=== PATIENT | male | born 1970 | race Hispanic/Latino ===

== ENCOUNTER 2019-02-10 09:16 | Emergency (ER) | payer BC, OTHER ==
[2019-02-10 10:13] LABS: Basophils % 0.7 % (0-1.3); Hematocrit 42.2 % (39.6-49.0); Lymphocytes % 33.1 % (15.3-44.8); MPV 8.8 fL (7.6-11.3)
[2019-02-10] MEDS ORDERED: ONDANSETRON 4 MG/2 ML VIAL ONE (10:20)
[2019-02-10] MEDS ORDERED: MEPERIDINE HCL 25 MG/0.5 ML ONE (10:20)
[2019-02-10 10:25] LABS: ALT/SGPT 30 U/L (12-78); AST/SGOT 10 U/L (15-37); Albumin 3.8 g/dL (3.4-5.0); Alkaline Phosphatase 48 U/L (45-117); BUN Blood Urea Nitrogen 17 mg/dL (7-18); Bicarbonate 26 mmol/L (21-32); Bilirubin Direct 0.1 mg/dL (0-0.2); Bilirubin Total 0.5 mg/dL (0.2-1.0); Glucose Level 97 mg/dL (74-106); Lipase 90 U/L (73-393); Potassium 4.2 mmol/L (3.5-5.1); Protein, Total 7.5 g/dL (6.4-8.2); Sodium Level 141 mmol/L (136-145)
--- NOTE | 2019-02-10 10:51 | RAD REPORT ---
EXAM DESCRIPTION: US - Abdomen Exam Limited - 02/10/2019 10:13 am CLINICAL HISTORY: r/o GB;Abd pain COMPARISON: Abdomen Exam Limited dated 03/05/2016 FINDINGS: The gallbladder demonstrates no gallstones. No pericholecystic fluid or gallbladder wall t hickening. The common bile duct is normal measuring 4 mm. The liver demonstrates no findings of intrahepatic biliary dilatation. IMPRESSION: Unremarkable examination.
--- NOTE | 2019-02-10 10:54 | ER ---
Nurse's Notes [facility] Name: Chilo Sher Age: 48 yrs Sex: Male : 1970 Arrival Date: 02/10/2019 Time: 09:17 Bed 7 Private MD: Diagnosis: Right upper quadrant pain Presentation: 02/10 09:27 Presenting complaint: Patient states: RUQ pain for a few months, got worse yesterday, iw pain described as sharp and radiates to back, intermittent. Transition of care: patient was not received from another setting of care. Onset of symptoms was November 2018. Risk Assessment: Do you want to hurt yourself or someone else? Patient reports no desire to harm self or others. Initial Sepsis Screen: Does the patient meet any 2 criteria? No. Patient's initial sepsis screen is negative. Does the patient have a suspected source of infection? No. Patient's initial sepsis screen is negative. Care prior to arrival: None. :27 Method Of Arrival: Ambulatory iw :27 Acuity: INEZ 3 iw Historical: - Allergies: : No Known Allergies; iw - Home Meds: : None [Active]; iw - PMHx: : None; iw - PSHx: : None; iw - Immunization history:: Adult Immunizations not up to date. - Social history:: Smoking status: Patient/guardian denies using tobacco. - Ebola Screening: : Patient negative for fever greater than or equal to 101.5 degrees Fahrenheit, and additional compatible Ebola Virus Disease symptoms Patient denies exposure to infectious person Patient denies travel to an Ebola-affected area in the 21 days before illness onset No symptoms or risks identified at this time. Screenin:30 Abuse screen: Denies threats or abuse. Nutritional screening: No deficits noted. aa5 Tuberculosis screening: No symptoms or risk factors identified. Fall Risk None identified. Assessment: 09:30 General: Appears comfortable, Behavior is calm, cooperative. Pain: Complains of pain in aa5 right upper quadrant Pain radiates to right mid back Pain currently is 6 out of 10 on a pain scale. Quality of pain is described as sharp, Pain began "months ago" Is intermittent. Neuro: Level of Consciousness is awake, alert, obeys commands, Oriented to person, place, time, situation. Cardiovascular: Heart tones S1 S2 present Rhythm is regular. Respiratory: Airway is patent Respiratory effort is even, unlabored, Respiratory pattern is regular, symmetrical. GI: Abdomen is round non-distended, Bowel sounds present X 4 quads. Abd is soft X 4 quads Abdomen is tender to palpation in right upper quadrant Patient currently denies diarrhea, nausea, vomiting. : No signs and/or symptoms were reported regarding the genitourinary system. EENT: No signs and/or symptoms were reported regarding the EENT system. Derm: Skin is pink, warm \\T\\ dry. Musculoskeletal: Range of motion: intact in all extremities. 10:15 Reassessment: Patient is alert, oriented x 3, equal unlabored respirations, skin aa5 warm/dry/pink. Pt back from US. Pt requesting pain medication at this time, MIKE was notified. . 10:35 Reassessment: Patient is alert, oriented x 3, equal unlabored respirations, skin aa5 warm/dry/pink. Patient states feeling better. 11:22 Reassessment: Patient is alert, oriented x 3, equal unlabored respirations, skin aa5 warm/dry/pink. Vital Signs: 09:29 BP 114 / 80; Pulse 72; Resp 16 S; Temp 97.6(TE); Pulse Ox 99% on R/A; Weight 84.82 kg; iw Height 5 ft. 8 in. (172.72 cm); Pain 8/10; 10:30 BP 118 / 75; Pulse 74; Resp 18 S; Pulse Ox 99% on R/A; Pain 8/10; aa5 11:20 BP 109 / 70; Pulse 60; Resp 16 S; Temp 97.8(TE); Pulse Ox 97% on R/A; aa5 09:29 Body Mass Index 28.43 (84.82 kg, 172.72 cm) iw ED Course: 09:17 Patient arrived in ED. as 09:18 Mor Mcmahan PA is PHCP. jr8 09:18 Augustin Cardoso MD is Attending Physician. jr8 09:20 Buffy Ramos, LAURE is Primary Nurse. aa5 09:28 Triage completed. iw 09:29 Arm band placed on. iw 09:30 Patient has correct armband on for positive identification. Placed in gown. Bed in low aa5 position. Call light in reach. Side rails up X2. 10:03 Initial lab(s) drawn, by me, sent to lab. Inserted saline lock: 22 gauge in right jb1 antecubital area, using aseptic technique. Blood collected. 10:05 US Abdomen Limited In Process Unspecified. EDMS 10:53 Serafin Schuster MD is Referral Physician. jr8 11:22 No provider procedures requiring assistance completed. IV discontinued, intact, aa5 bleeding controlled, No redness/swelling at site. Pressure dressing applied. Administered Medications: 10:19 Drug: Demerol 25 mg Route: IVP; Site: right antecubital; aa5 10:25 Follow up: Response: No adverse reaction aa5 10:19 Drug: Zofran 4 mg Route: IVP; Site: right antecubital; aa5 10:25 Follow up: Response: No adverse reaction aa5 Outcome: 10:53 Discharge ordered by . jr8 11:22 Discharged to home ambulatory, with significant other. aa5 11:22 Condition: stable 11:22 Discharge instructions given to patient, Instructed on discharge instructions, follow up and referral plans. Demonstrated understanding of instructions, follow-up care. 11:30 Patient left the ED. bd Signatures: Dispatcher [employer] EDMS Jackson England jb1 Amanda Ross bd Ann De Paz Irene, RN RN iw Calderon, Audri, RN RN aa5 Mor Mcmahan PA PA jr8 Corrections: (The following items were deleted from the chart) 09:20 Abuse screen: Denies threats or abuse. aa5 aa5 09:20 Nutritional screening: No deficits noted. aa5 aa5 09:20 Tuberculosis screening: No symptoms or risk factors identified. aa5 aa5 09:20 Fall Risk None identified. aa5 aa5 09:20 General: Appears comfortable, Behavior is calm, cooperative, aa5 aa5 09:20 Pain: Complains of pain in right upper quadrant Pain radiates to right mid back aa5 Pain currently is 6 out of 10 on a pain scale. Quality of pain is described as sharp, Pain began "months ago" Is intermittent, aa5 09:20 Neuro: Level of Consciousness is awake, alert, obeys commands, Oriented to aa5 person, place, time, situation, aa5 Cardiovascular: Heart tones S1 S2 present Rhythm is regular aa5 aa:20 Respiratory: Airway is patent Respiratory effort is even, unlabored, Respiratory aa5 pattern is regular, symmetrical, aa5 GI: Abdomen is round non-distended, Bowel sounds present X 4 quads. Abd is soft X aa5 4 quads Abdomen is tender to palpation in right upper quadrant Patient currently denies diarrhea, nausea, vomiting, aa5 : No signs and/or symptoms were reported regarding the genitourinary system. aa5aa5 EENT: No signs and/or symptoms were reported regarding the EENT system. aa5 Derm: Skin is pink, warm \\T\\ dry. aa5 Musculoskeletal: Range of motion: intact in all extremities, aa aa
--- NOTE | 2019-02-10 10:54 | EDPHYS ---
Physician Documentation [facility] Name: Chilo Sher Age: 48 yrs Sex: Male : 1970 Arrival Date: 02/10/2019 Time: 09:17 Bed 7 Private MD: ED Physician Augustin Cardoso HPI: 02/10 10:18 This 48 yrs old Male presents to ER via Ambulatory with complaints of jr8 Epigastric Pain, Back Pain. 10:18 The patient presents with abdominal pain in the epigastric area, in the right upper jr8 quadrant. Onset: The symptoms/episode began/occurred acutely, yesterday. The symptoms radiate to right back. Associated signs and symptoms: none. The symptoms are described as stabbing. Modifying factors: The symptoms are alleviated by nothing, the symptoms are aggravated by food. Severity of pain: At its worst the pain was moderate in the emergency department the pain is unchanged. The patient has not experienced similar symptoms in the past. The patient has not recently seen a physician. Historical: - Allergies: :28 No Known Allergies; iw - Home Meds: : None [Active]; iw - PMHx: : None; iw - PSHx: : None; iw - Immunization history:: Adult Immunizations not up to date. - Social history:: Smoking status: Patient/guardian denies using tobacco. - Ebola Screening: : Patient negative for fever greater than or equal to 101.5 degrees Fahrenheit, and additional compatible Ebola Virus Disease symptoms Patient denies exposure to infectious person Patient denies travel to an Ebola-affected area in the 21 days before illness onset No symptoms or risks identified at this time. ROS: 10:18 Constitutional: Negative for fever, chills, and weight loss. jr8 10:18 Abdomen/GI: Positive for abdominal pain, Negative for nausea, vomiting, and diarrhea, abdominal cramps, abdominal distension, hematemesis, black/tarry stool, rectal pain, rectal bleeding, bowel incontinence, flatulence. 10:18 All other systems are negative. Exam: 10:18 Eyes: Pupils equal round and reactive to light, extra-ocular motions intact. Lids and jr8 lashes normal. Conjunctiva and sclera are non-icteric and not injected. Cornea within normal limits. Periorbital areas with no swelling, redness, or edema. ENT: Nares patent. No nasal discharge, no septal abnormalities noted. Tympanic membranes are normal and external auditory canals are clear. Oropharynx with no redness, swelling, or masses, exudates, or evidence of obstruction, uvula midline. Mucous membranes moist. Neck: Trachea midline, no thyromegaly or masses palpated, and no cervical lymphadenopathy. Supple, full range of motion without nuchal rigidity, or vertebral point tenderness. No Meningismus. Cardiovascular: Regular rate and rhythm with a normal S1 and S2. No gallops, murmurs, or rubs. Normal PMI, no JVD. No pulse deficits. Respiratory: Lungs have equal breath sounds bilaterally, clear to auscultation and percussion. No rales, rhonchi or wheezes noted. No increased work of breathing, no retractions or nasal flaring. Back: No spinal tenderness. No costovertebral tenderness. Full range of motion. Skin: Warm, dry with normal turgor. Normal color with no rashes, no lesions, and no evidence of cellulitis. MS/ Extremity: Pulses equal, no cyanosis. Neurovascular intact. Full, normal range of motion. Neuro: Awake and alert, GCS 15, oriented to person, place, time, and situation. Cranial nerves II-XII grossly intact. Motor strength 5/5 in all extremities. Sensory grossly intact. Cerebellar exam normal. Normal gait. 10:18 Abdomen/GI: Inspection: abdomen appears normal, Bowel sounds: active, all quadrants, Palpation: soft, in all quadrants, moderate abdominal tenderness, in the right upper quadrant, mass, is not appreciated, rebound tenderness, is not appreciated, voluntary guarding, is not appreciated, involuntary guarding, is not appreciated, no appreciated organomegaly, Indicators: McBurney's point is not tender, Chavez's sign is negative, Rovsing's sign is negative, Liver: tenderness, is not appreciated. Vital Signs: 09:29 BP 114 / 80; Pulse 72; Resp 16 S; Temp 97.6(TE); Pulse Ox 99% on R/A; Weight 84.82 kg; iw Height 5 ft. 8 in. (172.72 cm); Pain 8/10; 10:30 BP 118 / 75; Pulse 74; Resp 18 S; Pulse Ox 99% on R/A; Pain 8/10; aa5 11:20 BP 109 / 70; Pulse 60; Resp 16 S; Temp 97.8(TE); Pulse Ox 97% on R/A; aa5 09:29 Body Mass Index 28.43 (84.82 kg, 172.72 cm) iw MDM: 09:41 Patient medically screened. 10:51 Differential diagnosis: bowel obstruction, cholecystitis, Cholelithiasis, jr8 diverticulitis, gastritis, gastroesophageal reflux disease, non-specific abd pain, pancreatitis, Peptic Ulcer Disease, Perf. Duodenal Ulcer, Perf. Gastric Ulcer, Ureterolithiasis. Data reviewed: vital signs, nurses notes, lab test result(s), radiologic studies, ultrasound. Data interpreted: Pulse oximetry: on room air is 99 %. Interpretation: normal. Counseling: I had a detailed discussion with the patient and/or guardian regarding: the historical points, exam findings, and any diagnostic results supporting the discharge/admit diagnosis, lab results, radiology results, the need for outpatient follow up, a uniform maker, to return to the emergency department if symptoms worsen or persist or if there are any questions or concerns that arise at home. Response to treatment: the patient's symptoms have markedly improved after treatment. 02/10 09:53 Order name: Basic Metabolic Panel; Complete Time: 10:35 02/10 09:53 Order name: CBC with Diff; Complete Time: 10:17 02/10 09:53 Order name: Creatinine for Radiology; Complete Time: 10:35 02/10 09:53 Order name: Hepatic Function; Complete Time: 10:35 02/10 09:53 Order name: Lipase; Complete Time: 10:35 02/10 09:53 Order name: US Abdomen Limited; Complete Time: 10:53 02/10 09:53 Order name: IV Saline Lock; Complete Time: 10:03 02/10 09:53 Order name: Labs collected and sent; Complete Time: 10: Administered Medications: 10:19 Drug: Demerol 25 mg Route: IVP; Site: right antecubital; aa5 10:25 Follow up: Response: No adverse reaction aa5 10:19 Drug: Zofran 4 mg Route: IVP; Site: right antecubital; aa5 10:25 Follow up: Response: No adverse reaction aa5 Disposition: 17:50 Co-signature as Attending Physician, Augustin Cardoso MD Did not see or evaluate patient. ps1 Chart signed for administrative purposes. Not an endorsement of care. . Disposition: 02/10/19 10:53 Discharged to Home. Impression: Right upper quadrant pain. - Condition is Stable. - Discharge Instructions: Abdominal Pain, Adult, Biliary Colic, Adult, Gallbladder Nuclear Scan. - Work release form, Medication Reconciliation Form, Thank You Letter, Antibiotic Education, Prescription Opioid Use form. - Follow up: Serafin Schuster MD; When: 2 - 3 days; Reason: Recheck today's complaints, Continuance of care, Re-evaluation by your physician. - Problem is new. - Symptoms have improved. Signatures: Dispatcher [employer] Amanda Camacho Irene, LAURE RN iw Buffy Ramos RN RN aa5 Mor Mcmahan, MIKE PA jr8 Augustin Cardoso MD MD ps1 Corrections: (The following items were deleted from the chart) 11:30 10:53 02/10/2019 10:53 Discharged to Home. Impression: Right upper quadrant pain. bd Condition is Stable. Forms are Medication Reconciliation Form, Thank You Letter, Antibiotic Education, Prescription Opioid Use. Follow up: Serafin Schuster; When: 2 - 3 days; Reason: Recheck today's complaints, Continuance of care, Re-evaluation by your physician. Problem is new. Symptoms have improved. jr8
[2019-02-10 11:42] VITALS: BP 114/80; TEMP 97.6; O2SAT 99
== END 2019-02-10 11:30 | disposition home or self-care (01) ==
LOC: ER 09:16
DX: R10.11 Right upper quadrant pain (principal)
CPT/HCPCS: 85025; 80048; 36415; 80076; 83690; 76705; 96375; 96374; 99284; J2175; J2405

== ENCOUNTER 2019-05-11 17:07 | Emergency (ER) | payer BC ==
[2019-05-11] MEDS ORDERED: KETOROLAC 30 MG/ML INJ ONE (18:07)
--- NOTE | 2019-05-11 18:22 | RAD REPORT ---
EXAM DESCRIPTION: RAD - Shoulder Right 2 View - 05/11/2019 6:16 pm CLINICAL HISTORY: PAIN COMPARISON: No comparisons FINDINGS: Moderate AC joint and glenohumeral joint arthritic changes present. Humeral head is mildly high-riding with subacromial outlet narrowing suggesting underlying rotator cuff pathology. No fract ure or dislocation seen.
--- NOTE | 2019-05-11 19:01 | ER ---
Nurse's Notes [facility] Name: Chilo Sher Age: 48 yrs Sex: Male : 1970 Arrival Date: 05/11/2019 Time: 17:09 Bed 15 Private MD: Diagnosis: Pain in right shoulder Presentation: 05/11 17:34 Presenting complaint: Right shoulder pain 10/10 x 2 days. Denies injury. Transition of care: patient was not received from another setting of care. Onset of symptoms was May 10, 2019. Risk Assessment: Do you want to hurt yourself or someone else? Patient reports no desire to harm self or others. Care prior to arrival: None. 17:34 Method Of Arrival: Ambulatory 17:34 Acuity: INEZ 4 Triage Assessment: 17:37 General: Appears in no apparent distress. comfortable, Behavior is cooperative, bp appropriate for age, anxious. Pain: Complains of pain in anterior aspect of right shoulder. EENT: No deficits noted. Neuro: No deficits noted. Cardiovascular: No deficits noted. Respiratory: No deficits noted. GI: No signs and/or symptoms were reported involving the gastrointestinal system. : No signs and/or symptoms were reported regarding the genitourinary system. Derm: No deficits noted. Musculoskeletal: Circulation, motion, and sensation intact. Range of motion: intact in all extremities. Historical: - Allergies: 17:34 No Known Allergies; hb - Home Meds: 17:34 None [Active]; hb - PMHx: 17:34 None; hb - PSHx: 17:34 None; hb - Immunization history:: Adult Immunizations up to date. - Coronavirus screen:: The patient has NOT traveled to [place] in the past 14 days. The patient has NOT had contact with known/suspected case of Coronavirus? Proceed with normal triage procedures. - Social history:: Patient/guardian denies using alcohol, street drugs, The patient lives with family, with spouse, Smoking status: Patient reports the use of cigarette tobacco products, denies chronic smoking, but will smoke occasionally. - Family history:: not pertinent. - Ebola Screening: : No symptoms or risks identified at this time. Screenin:39 Abuse screen: Denies threats or abuse. Denies injuries from another. Nutritional bp screening: No deficits noted. Tuberculosis screening: No symptoms or risk factors identified. Fall Risk None identified. Assessment: 17:39 General: SEE TRIAGE NOTE. bp 19:08 Reassessment: PT D/C HOME AMBULATORY, DX WITH R SHOULDER PAIN. bp Vital Signs: 17:34 BP 128 / 85; Pulse 88; Resp 16; Temp 97.9; Pulse Ox 100% on R/A; Weight 86.18 kg; hb Height 5 ft. 8 in. (172.72 cm); Pain 8/10; 19:08 BP 131 / 79; Pulse 79; Resp 16; Temp 98; Pulse Ox 99% ; bp 17:34 Body Mass Index 28.89 (86.18 kg, 172.72 cm) hb ED Course: 17:09 Patient arrived in ED. rg4 17:34 Triage completed. hb 17:34 Arm band placed on. hb 17:37 Alfonso Londono, RN is Primary Nurse. bp 17:39 Patient has correct armband on for positive identification. Bed in low position. Call bp light in reach. Side rails up X2. 17:40 Marco Swartz MD is Attending Physician. ma2 19:08 No provider procedures requiring assistance completed. Patient did not have IV access bp during this emergency room visit. Sling applied to right arm. Administered Medications: 18:00 Drug: TORadol 60 mg Route: IM; Site: right gluteus; bp 19:08 Follow up: Response: Pain is decreased bp Outcome: 18:57 Discharge ordered by . ma2 19:08 Discharged to home ambulatory, with family. bp 19:08 Condition: stable 19:08 Discharge instructions given to patient, Instructed on discharge instructions, follow up and referral plans. medication usage, Demonstrated understanding of instructions, follow-up care, medications, Prescriptions given X 2. 19:10 Patient left the ED. bp Signatures: Parisa Fried RN RN Alis Lutz rg4 Alfonso Londono, LAURE KELSEY bp Marco Swartz MD MD health system
--- NOTE | 2019-05-11 19:02 | EDPHYS ---
Physician Documentation [facility] Name: Chilo Sher Age: 48 yrs Sex: Male : 1970 Arrival Date: 05/11/2019 Time: 17:09 Bed 15 Private MD: ED Physician Marco Swartz HPI: 05/11 18:45 This 48 yrs old Male presents to ER via Ambulatory with complaints of Arm Pain.ma2 18:45 The patient or guardian complains of pain. The complaints affect the anterior aspect of ma2 right shoulder. Onset: The symptoms/episode began/occurred gradually, 2 day(s) ago. Associated signs and symptoms: Pertinent negatives: fever, numbness, tingling, vomiting. Severity of symptoms: At their worst the symptoms were mild, in the emergency department the symptoms are unchanged. The patient has not experienced similar symptoms in the past. Historical: - Allergies: 17:34 No Known Allergies; hb - Home Meds: 17:34 None [Active]; hb - PMHx: 17:34 None; hb - PSHx: 17:34 None; hb - Immunization history:: Adult Immunizations up to date. - Coronavirus screen:: The patient has NOT traveled to [place] in the past 14 days. The patient has NOT had contact with known/suspected case of Coronavirus? Proceed with normal triage procedures. - Social history:: Patient/guardian denies using alcohol, street drugs, The patient lives with family, with spouse, Smoking status: Patient reports the use of cigarette tobacco products, denies chronic smoking, but will smoke occasionally. - Family history:: not pertinent. - Ebola Screening: : No symptoms or risks identified at this time. ROS: 18:45 Constitutional: Negative for fever, chills, and weight loss. ma2 18:45 All other systems are negative. Exam: 18:45 Constitutional: This is a well developed, well nourished patient who is awake, alert, ma2 and in no acute distress. Neck: Trachea midline, no thyromegaly or masses palpated, and no cervical lymphadenopathy. Supple, full range of motion without nuchal rigidity, or vertebral point tenderness. No Meningismus. Chest/axilla: Normal chest wall appearance and motion. Nontender with no deformity. No lesions are appreciated. Cardiovascular: Regular rate and rhythm with a normal S1 and S2. No gallops, murmurs, or rubs. Normal PMI, no JVD. No pulse deficits. Respiratory: Lungs have equal breath sounds bilaterally, clear to auscultation and percussion. No rales, rhonchi or wheezes noted. No increased work of breathing, no retractions or nasal flaring. Abdomen/GI: Soft, non-tender, with normal bowel sounds. No distension or tympany. No guarding or rebound. No evidence of tenderness throughout. Skin: Warm, dry with normal turgor. Normal color with no rashes, no lesions, and no evidence of cellulitis. MS/ Extremity: right rotator cuff ttp and biceps ttp, otherwise Pulses equal, no cyanosis. Neurovascular intact. Full, normal range of motion. 18:45 Neuro: Awake and alert, GCS 15, oriented to person, place, time, and situation. ma2 Cranial nerves II-XII grossly intact. Motor strength 5/5 in all extremities. Sensory grossly intact. Cerebellar exam normal. Normal gait. Vital Signs: 17:34 BP 128 / 85; Pulse 88; Resp 16; Temp 97.9; Pulse Ox 100% on R/A; Weight 86.18 kg; hb Height 5 ft. 8 in. (172.72 cm); Pain 8/10; 19:08 BP 131 / 79; Pulse 79; Resp 16; Temp 98; Pulse Ox 99% ; bp 17:34 Body Mass Index 28.89 (86.18 kg, 172.72 cm) hb MDM: 17:40 Patient medically screened. ma2 18:45 Differential diagnosis: dislocation, closed fracture, contusion, abrasion. Data ma2 reviewed: vital signs, nurses notes. Counseling: I had a detailed discussion with the patient and/or guardian regarding: the historical points, exam findings, and any diagnostic results supporting the discharge/admit diagnosis, the presence of at least one elevated blood pressure reading (>120/80) during this emergency department visit, the need for outpatient follow up. Response to treatment: the patient's symptoms have markedly improved after treatment. 05/11 17:52 Order name: Shoulder Right (2 View) XRAY ma2 05/11 17:52 Order name: Arm-Sling; Complete Time: 19:08 ma2 Administered Medications: 18:00 Drug: TORadol 60 mg Route: IM; Site: right gluteus; bp 19:08 Follow up: Response: Pain is decreased bp Disposition: 05/11/19 18:57 Discharged to Home. Impression: Pain in right shoulder. - Condition is Stable. - Discharge Instructions: Musculoskeletal Pain, Cryotherapy. - Prescriptions for Tylenol- Codeine #3 300-30 mg Oral Tablet - take 2 tablet by ORAL route every 6 hours As needed; 30 tablet. Cyclobenzaprine 10 mg Oral Tablet - take 1 tablet by ORAL route every 8 hours As needed; 30 tablet. - School release form, Work release form, Medication Reconciliation Form, Thank You Letter, Antibiotic Education, Prescription Opioid Use form. - Follow up: Private Physician; When: Tomorrow; Reason: Continuance of care. Signatures: Dispatcher [employer] EDMS Parisa Fried RN RN Alfonso Pryor RN RN Marco Chacon MD MD ma2 Corrections: (The following items were deleted from the chart) 19:10 18:57 05/11/2019 18:57 Discharged to Home. Impression: Pain in right shoulder. bp Condition is Stable. Discharge Instructions: Musculoskeletal Pain, Cryotherapy. Prescriptions for Tylenol-Codeine #3 300-30 mg Oral Tablet - take 2 tablet by ORAL route every 6 hours As needed; 30 tablet, Cyclobenzaprine 10 mg Oral Tablet - take 1 tablet by ORAL route every 8 hours As needed; 30 tablet. and Forms are Medication Reconciliation Form, Thank You Letter, Antibiotic Education, Prescription Opioid Use. Follow up: Private Physician; When: Tomorrow; Reason: Continuance of care. ma2
== END 2019-05-11 19:10 | disposition home or self-care (01) ==
LOC: ER 17:07
DX: M25.511 Pain in right shoulder (principal); Z72.0 Tobacco use
CPT/HCPCS: 96372; 99283

== ENCOUNTER 2020-11-09 05:08 | Emergency (ER) | payer BC, SELFPAY ==
[2020-11-09 06:36] LABS: Absolute Lymphocytes (CBC) 0.8 K/uL (0.7-4.9); Basophils % 0.6 % (0-1.3); Hematocrit 43.7 % (39.6-49.0); MPV 8.5 fL (7.6-11.3); RBC Red Blood Cell Count 4.84 M/uL (4.33-5.43)
[2020-11-09] MEDS ORDERED: NA CHLORIDE 0.9% 1,000 ML ONE (06:50)
[2020-11-09] MEDS ORDERED: KETOROLAC 30 MG/ML INJ ONE (06:50)
[2020-11-09] MEDS ORDERED: DICYCLOMINE HCL 10 MG CAP ONE (06:50)
[2020-11-09 06:53] LABS: Albumin 4.2 g/dL (3.4-5.0); Bilirubin Direct 0.1 mg/dL (0-0.2); Bilirubin Total 0.4 mg/dL (0.2-1.0); Potassium 3.7 mmol/L (3.5-5.1); Protein, Total 8.9 g/dL (6.4-8.2)
--- NOTE | 2020-11-09 07:31 | RAD REPORT ---
EXAM DESCRIPTION: CT - Abdomen Pelvis W Contrast - 11/09/2020 6:51 am CLINICAL HISTORY: ABD PAIN COMPARISON: No comparisons TECHNIQUE: Biphasic, helical CT imaging of the abdomen and pelvis was performed following 100 ml non -ionic IV contrast. No oral contrast administered. All CT scans are performed using dose optimization technique as appropriate and may include automated exposure control or mA/KV adjustment according to patient size. FINDINGS: No suspicious findings in the lung bases. The liver, spleen, and pancreas show no suspicious findings. Gallbladder and biliary tree are also wi thout suspicious finding. Symmetric renal function is seen with no hydronephrosis or suspicious renal mass. No pyelonephritis o r acute parenchymal process. Urinary bladder is mostly contracted limiting assessment. No prostate or seminal vesicle abnormality. No adrenal abnormalities. No dilated bowel loops or bowel wall thickening. Appendix is normal. No active GI process seen. Sigmo id colon is tortuous and redundant. No free air, free fluid or inflammatory stranding. No hernia, ma ss or bulky lymphadenopathy. No suspicious bony findings. IMPRESSION: Contrast enhanced CT abdomen and pelvis showing no acute or emergent finding.
--- NOTE | 2020-11-09 07:41 | EDPHYS ---
Physician Documentation [facility] Name: Chilo Sher Age: 50 yrs Sex: Male : 1970 Arrival Date: 11/09/2020 Time: 05:11 Bed 9 Private MD: ED Physician Abhijeet Ashley HPI: 11/09 06:39 This 50 yrs old Male presents to ER via Ambulatory with complaints of kb Diarrhea, Abdominal Cramping, Black/Tarry Stools, Bloody Stools. 06:39 The patient presents to the emergency department with diarrhea, abdominal pain, kb described as crampy. Onset: The symptoms/episode began/occurred 2 day(s) ago. Possible causes: unknown. The symptoms are aggravated by nothing. The symptoms are alleviated by nothing. Associated signs and symptoms: Pertinent positives: abdominal pain, diarrhea, Pertinent negatives: fever, nausea, vomiting. Severity of symptoms: At their worst the symptoms were moderate in the emergency department the symptoms have improved. The patient has not experienced similar symptoms in the past. The patient has not recently seen a physician. Pt reports diarrhea for 2 days with abd cramping. States he noticed a couple of drops of blood on the toilet paper when he wiped yesterday. Started taking pepto bismol yesterday, now stool is more formed and black in color. . Historical: - Allergies: 05:26 No Known Allergies; bb - Home Meds: 05:26 None [Active]; bb - PMHx: 05:26 None; bb - PSHx: 05:26 None; bb - Immunization history:: Adult Immunizations up to date, Client reports having NOT received the Covid vaccine. - Social history:: Smoking status: Patient reports the use of cigarette tobacco products, denies chronic smoking, but will smoke occasionally, Patient uses alcohol, occasionally. ROS: 06:38 Constitutional: Negative for fever, chills, and weight loss. kb 06:38 Abdomen/GI: Positive for abdominal pain, diarrhea, black/tarry stool, Negative for nausea and vomiting. 06:38 All other systems are negative. Exam: 06:38 Constitutional: This is a well developed, well nourished patient who is awake, alert, kb and in no acute distress. Head/Face: Normocephalic, atraumatic. ENT: Moist Mucous membranes Respiratory: Respirations even and unlabored. No increased work of breathing, no retractions or nasal flaring. Skin: Warm, dry with normal turgor. Normal color. MS/ Extremity: Pulses equal, no cyanosis. Neurovascular intact. Full, normal range of motion. Neuro: Awake and alert, GCS 15, oriented to person, place, time, and situation. Moves all extremities. Normal gait. Psych: Awake, alert, with orientation to person, place and time. Behavior, mood, and affect are within normal limits. 06:38 Abdomen/GI: Inspection: abdomen appears normal, Bowel sounds: normal, in all quadrants, Palpation: soft, in all quadrants, mild abdominal tenderness, in the right upper quadrant and right lower quadrant. Vital Signs: 05:24 BP 116 / 80; Pulse 95; Resp 18 S; Temp 99.1(O); Pulse Ox 98% on R/A; Weight 86.18 kg bb (R); Height 5 ft. 8 in. (172.72 cm) (R); Pain 7/10; 05:24 Body Mass Index 28.89 (86.18 kg, 172.72 cm) bb MDM: 06:01 Patient medically screened. kb 06:37 Data reviewed: vital signs, nurses notes. Data interpreted: Pulse oximetry: on room air kb is 98 %. Interpretation: normal. 07:41 Counseling: I had a detailed discussion with the patient and/or guardian regarding: the kb historical points, exam findings, and any diagnostic results supporting the discharge/admit diagnosis, lab results, radiology results, the need for outpatient follow up, a family practitioner, to return to the emergency department if symptoms worsen or persist or if there are any questions or concerns that arise at home. 11/09 05:28 Order name: Basic Metabolic Panel; Complete Time: 06:58 11/09 05:28 Order name: CBC with Diff; Complete Time: 06:42 11/09 05:28 Order name: Hepatic Function; Complete Time: 06:58 11/09 05:28 Order name: Lipase; Complete Time: 06:58 11/09 05:28 Order name: Type And Screen; Complete Time: 07:31 11/09 05:28 Order name: IV Saline Lock; Complete Time: 06:23 11/09 05:28 Order name: Labs collected and sent; Complete Time: 06:23 bb 11/09 06:02 Order name: CT Abd/Pelvis - IV Contrast Only; Complete Time: 07:32 kb 11/09 07:02 Order name: CREATININE WHOLE BLOOD; Complete Time: 07:31 EDMS 11/09 07:36 Order name: SARS-COV-2 RT PCR; Complete Time: 07:37 EDMS Administered Medications: 06:31 Drug: NS 0.9% 1000 ml Route: IV; Rate: 1000 ml; Site: left antecubital; bb 07:35 Follow up: IV Status: Completed infusion; IV Intake: 1000ml bb 06:31 Drug: Bentyl (dicyclomine) 20 mg Route: PO; bb 07:35 Follow up: Response: No adverse reaction bb 06:32 Drug: Ketorolac 15 mg Route: IVP; Site: left antecubital; bb 07:35 Follow up: Response: No adverse reaction bb Disposition Summary: 11/09/20 07:41 Discharge Ordered Location: Home kb Condition: Stable kb Diagnosis - Coronavirus infection, unspecified kb Followup: kb - With: Emergency Department - When: As needed - Reason: Worsening of condition Followup: kb - With: Private Physician - When: 2 - 3 days - Reason: Recheck today's complaints, Continuance of care, Re-evaluation by your physician Discharge Instructions: - Discharge Summary Sheet kb - Diarrhea, Adult, [id number] kb - Viral Respiratory Infection, [id number]-[id number] kb - COVID-19 kb Forms: - Medication Reconciliation Form kb - Thank You Letter kb - Antibiotic Education kb - Prescription Opioid Use kb Prescriptions: - Zofran 4 mg Oral Tablet - take 1 tablet by ORAL route every 6 hours As needed; 20 tablet; Refills: 0, kb Product Selection Permitted - dicyclomine 20 mg Oral Tablet - take 1 tablet by ORAL route every 6 hours As needed; 20 tablet; Refills: 0, kb Product Selection Permitted Signatures: Dispatcher [employer] EDPriscilla Keller FNP-C FNP-Ckb Ballard, Brenda, RN RN bb Corrections: (The following items were deleted from the chart) 06:32 05:31 CORONAVIRUS+.BRZ ordered. EDLA EDMS 06:38 06:38 Abdomen/GI: Positive for abdominal pain, diarrhea, Negative for nausea and kb vomiting, kb 06:39 06:38 Abdomen/GI: Inspection: abdomen appears normal, Bowel sounds: normal, in all kb quadrants, Palpation: soft, in all quadrants, mild abdominal tenderness, in the anterior aspect of right lateral abdomen, kb
--- NOTE | 2020-11-09 07:41 | ER ---
Nurse's Notes [facility] Name: Chilo Sher Age: 50 yrs Sex: Male : 1970 Arrival Date: 11/09/2020 Time: 05:11 Bed 9 Private MD: Diagnosis: Coronavirus infection, unspecified Presentation: 11/09 05:24 Chief complaint: Patient states: he has been having diarrhea for two days with lower bb abdominal cramping and the 2nd day he started passing blood, he has been taking pepto for the diarrhea. Coronavirus screen: diarrhea, Client presents with at least one sign or symptom that may indicate coronavirus-19. Standard/surgical mask placed on the client. Ebola Screen: No symptoms or risks identified at this time. Initial Sepsis Screen: Does the patient meet any 2 criteria? No. Patient's initial sepsis screen is negative. Does the patient have a suspected source of infection? No. Patient's initial sepsis screen is negative. Risk Assessment: Do you want to hurt yourself or someone else? Patient reports no desire to harm self or others. Onset of symptoms was November 07, 2020. 05:24 Method Of Arrival: Ambulatory 05:24 Acuity: INEZ 3 bb Triage Assessment: 05:26 General: Appears in no apparent distress. uncomfortable, Behavior is cooperative, bb anxious. Pain: Complains of pain in abdomen Pain currently is 7 out of 10 on a pain scale. Neuro: Level of Consciousness is awake, alert, obeys commands, Oriented to person, place, time, situation. Cardiovascular: Capillary refill < 3 seconds Patient's skin is warm and dry. Respiratory: Respiratory effort is even, unlabored. GI: Abdomen is non-distended, Reports lower abdominal pain, diarrhea, rectal bleeding. Derm: Skin is dry, Skin is normal, Skin temperature is warm. Musculoskeletal: Circulation, motion, and sensation intact. Historical: - Allergies: 05: No Known Allergies; bb - Home Meds: : None [Active]; bb - PMHx: 05:26 None; bb - PSHx: 05:26 None; bb - Immunization history:: Adult Immunizations up to date, Client reports having NOT received the Covid vaccine. - Social history:: Smoking status: Patient reports the use of cigarette tobacco products, denies chronic smoking, but will smoke occasionally, Patient uses alcohol, occasionally. Screenin:45 Abuse screen: Denies threats or abuse. Nutritional screening: No deficits noted. bb Tuberculosis screening: No symptoms or risk factors identified. Fall Risk None identified. Assessment: 05:45 Reassessment: No changes from previously documented assessment. Patient is alert, bb oriented x 3, equal unlabored respirations, skin warm/dry/pink. see triage assessment. 06:32 Reassessment: Patient is alert, oriented x 3, equal unlabored respirations, skin bb warm/dry/pink. pt to CT scan via wheelchair accompanied by biological lab technician. Vital Signs: 05:24 BP 116 / 80; Pulse 95; Resp 18 S; Temp 99.1(O); Pulse Ox 98% on R/A; Weight 86.18 kg bb (R); Height 5 ft. 8 in. (172.72 cm) (R); Pain 7/10; 05:24 Body Mass Index 28.89 (86.18 kg, 172.72 cm) bb ED Course: 05:11 Patient arrived in ED. bp1 05:26 Triage completed. bb 05:26 Arm band placed on Patient placed in waiting room, Patient notified of wait time. Labs bb ordered per protocol. Drawn by ED staff. 05:45 Patient has correct armband on for positive identification. bb 06:01 Priscilla Ordo[facility]-C [facility] kb 06:01 Abhijeet Ashley MD is Attending Physician. kb 06:15 Initial lab(s) drawn, by me, sent to lab. COVID swab sent to lab. T\T\S collected, blood bb band applied to patient. Inserted saline lock: 18 gauge in left antecubital area, using aseptic technique. Blood collected. 06:50 CT Abd/Pelvis - IV Contrast Only In Process Unspecified. EDMS 08:56 No provider procedures requiring assistance completed. IV discontinued, intact, ss bleeding controlled, No redness/swelling at site. Pressure dressing applied. Administered Medications: 06:31 Drug: NS 0.9% 1000 ml Route: IV; Rate: 1000 ml; Site: left antecubital; bb 07:35 Follow up: IV Status: Completed infusion; IV Intake: 1000ml bb 06:31 Drug: Bentyl (dicyclomine) 20 mg Route: PO; bb 07:35 Follow up: Response: No adverse reaction bb 06:32 Drug: Ketorolac 15 mg Route: IVP; Site: left antecubital; bb 07:35 Follow up: Response: No adverse reaction bb Intake: 07:35 IV: 1000ml; Total: 1000ml. bb Outcome: 07:41 Discharge ordered by . kb 08:56 Discharged to home ambulatory. ss 08:56 Condition: improved 08:56 Discharge instructions given to patient, Instructed on discharge instructions, follow up and referral plans. medication usage, Demonstrated understanding of instructions, follow-up care, medications, Prescriptions given X 2. 08:56 Patient left the ED. ss Signatures: Dispatcher [employer] EDMS Priscilla Ordoñez, LAURYN LEON-Louise Ventura RN RN bb Penelope Spain RN RN ss Annita Peters
[2020-11-09 09:04] VITALS: BP 116/80; TEMP 99.1; O2SAT 98
== END 2020-11-09 08:56 | disposition home or self-care (01) ==
LOC: ER 05:08
DX: U07.1 COVID-19 (principal); F17.210 Nicotine dependence, cigarettes, uncomplicated
CPT/HCPCS: 36415; 74177; 80048; 80076; 82565; 83690; 85025; 86850; 86900; 86901; J7030; Q9967; U0003

== ENCOUNTER 2021-10-23 07:07 | Emergency (ER) | payer SELFPAY ==
--- OUTSIDE RECORDS SUMMARY | 2021-10-23 07:11 | XMS REPORT | Continuity of Care Document ---
:1970 Author Organization [facility] t Address [address] [place] [address] Care Team Providers Name Role Phone Navya Christina Primary Care Physician [phone] Problems This patient has no known problems. Allergies, Adverse Reactions, Alerts This patient has no known allergies or adverse reactions. Medications Ordered Filled Start Stop Current Ordering Indication Dosage Frequency Signature Comments Components Source Medication Medication Date Date Medication? Clinician (SIG) Name Name TAKE ONE No 4 (1) 8-06 TABLET(S) 00:00: BY MOUTH 00 EVERY SIX HOURS NEEDED. TAKE ONE No 20 (1) 8-06 TABLET(S) 00:00: BY MOUTH 00 EVERY SIX HOURS NEEDED. ibuprofen No 1mg 800 mg 6-26 tablet 00:00: 00 omeprazole 2018- No 1mg 20 mg 1-18 capsule,del 00:00: ayed 00 release loratadine 2018-03 No 1mg 10 mg 1-18 tablet 00:00: 00 naproxen 2016-03 No 1mg 500 mg 2-04 tablet 00:00: 00 prednisone 2016- No mg 20 mg 2-04 tablet 00:00: 00 cyclobenzap 2016- No 1mg rine 10 mg 2-04 tablet 00:00: 00 gabapentin 2016- No 1mg 300 mg 2-04 capsule 00:00: 00 gentamicin 2016-0 No 3% 0.3 % eye 7-13 drops 00:00: 00 ranitidine 0 No 1mg 150 mg 7-13 tablet 00:00: 00 Vital Signs Vital Name Observation Time Observation Value Comments Source BP Systolic 2021-10-21 09:39:00 125 mm[Hg] BP Diastolic 2021-10-21 09:39:00 80 mm[Hg] Weight Measured 2021-10-21 09:39:00 188.20 pounds Height Measured 2021-10-21 09:39:00 70.00 inches Body Temperature 2021-10-21 09:39:00 97.90 degrees Heart Rate 2021-10-21 09:39:00 57.00 /min Respiratory Rate 2021-10-21 09:39:00 BP Systolic 2019-09-11 11:17:00 111 mm[Hg] BP Diastolic 2019-09-11 11:17:00 72 mm[Hg] Weight Measured 2019-09-11 11:17:00 186.00 pounds Height Measured 2019-09-11 11:17:00 70.00 inches Body Temperature 2019-09-11 11:17:00 98.60 degrees Heart Rate 2019-09-11 11:17:00 74.00 /min Respiratory Rate 2019-09-11 11:17:00 16.00 /min BP Systolic 2019-02-02 12:41:00 112 mm[Hg] BP Diastolic 2019-02-02 12:41:00 73 mm[Hg] Weight Measured 2019-02-02 12:41:00 184.80 pounds Height Measured 2019-02-02 12:41:00 70.00 inches Body Temperature 2019-02-02 12:41:00 98.20 degrees Heart Rate 2019-02-02 12:41:00 82.00 /min Respiratory Rate 2019-02-02 12:41:00 BP Systolic 2017-02-18 08:48:00 114 mm[Hg] BP Diastolic 2017-02-18 08:48:00 76 mm[Hg] Weight Measured 2017-02-18 08:48:00 188.00 pounds Height Measured 2017-02-18 08:48:00 70.00 inches Body Temperature 2017-02-18 08:48:00 98.30 degrees Heart Rate 2017-02-18 08:48:00 55.00 /min Respiratory Rate 2017-02-18 08:48:00 18.00 /min BP Systolic 2016-09-27 17:06:00 118 mm[Hg] BP Diastolic 2016-09-27 17:06:00 76 mm[Hg] Weight Measured 2016-09-27 17:06:00 196.00 pounds Height Measured 2016-09-27 17:06:00 70.00 inches Body Temperature 2016-09-27 17:06:00 98.80 degrees Heart Rate 2016-09-27 17:06:00 80.00 /min Respiratory Rate 2016-09-27 17:06:00 16.00 /min BP Systolic 2016-03-08 16:50:00 107 mm[Hg] BP Diastolic 2016-03-08 16:50:00 69 mm[Hg] Weight Measured 2016-03-08 16:50:00 192.80 pounds Height Measured 2016-03-08 16:50:00 70.00 inches Body Temperature 2016-03-08 16:50:00 96.70 degrees Heart Rate 2016-03-08 16:50:00 58.00 /min Respiratory Rate 2016-03-08 16:50:00 18.00 /min Procedures This patient has no known procedures. Plan of Care Planned Activity Planned Date Details Comments Source Goal Plan of Care Note [code = 61861-9] Goal Plan of Care Note [code = 22552-4] Goal Plan of Care Note [code = 91837-8] Goal Plan of Care Note [code = 20884-6] Goal Plan of Care Note [code = 57476-7] Goal Plan of Care Note [code = 78123-6] Goal Plan of Care Note [code = 61602-2] Goal Plan of Care Note [code = 11084-0] Goal Plan of Care Note [code = 25528-9] Goal Plan of Care Note [code = 03813-0] Goal Plan of Care Note [code = 66085-3] Goal Plan of Care Note [code = 01433-4] Goal Plan of Care Note [code = 77489-5] Goal Plan of Care Note [code = 32061-8] Goal Plan of Care Note [code = 82804-6] Goal Plan of Care Note [code = 13274-1] Goal Plan of Care Note [code = 70051-3] Goal Plan of Care Note [code = 08558-1] Goal Plan of Care Note [code = 95665-5] Goal Plan of Care Note [code = 68711-7] Goal Plan of Care Note [code = 93051-4] Goal Plan of Care Note [code = 59225-9] Encounters Start End Encounter Admission Attending Care Care Encounter Source Date/Time Date/Time Type Type Clinicians Facility Department ID 2021-10-21 2021-10-21 Outpatient [id number] 00:00:00 00:00:00 Visit [id number] Results Test Description Test Time Test Comments Results Result Comments Source COMPREHENSIVE METABOLIC PANEL 2021-10-23 06:54:18 Test Item Value Reference Range Interpretation Comme nts GLUCOSE (test code = 2216) 99 MG/DL 70-99 BUN (test code = 220) 20 MG/DL 6-20 CREATININE (test code = 0.78 MG/DL 0.80-1.40 L 2213) eGFR (2020 CKD-EPI) (test 107 ML/MIN/1.73 >60 code = 83898) CALC BUN/CREAT (test code = 26 RATIO 6-28 2234) SODIUM (test code = 223) 144 MEQ/L 133-146 POTASSIUM (test code = 2228) 5.0 MEQ/L 3.5-5.4 CHLORIDE (test code = 2215) 102 MEQ/L 95-107 CARBON DIOXIDE (test code = 19 MEQ/L 19-31 2205) CALCIUM (test code = 2209) 10.0 MG/DL 8.5-10.5 PROTEIN, TOTAL (test code = 8.1 G/DL 6.1-8.3 2228) ALBUMIN (test code = 2201) 5.3 G/DL 3.5-5.2 H CALC GLOBULIN (test code = 2.8 G/DL 1.9-3.7 2239) CALC A/G RATIO (test code = 1.9 RATIO 1.0-2.6 2233) BILIRUBIN, TOTAL (test code 0.4 MG/DL See_Comment [Automated message] The = 2206) system which ge nerated this result transmit jessi reference range : <=1.2. The reference range was not used to interpr et this result as christine l/abnormal. ALKALINE PHOSPHATASE (test 54 U/L 40-121 code = 2204) AST (test code = 2218) 17 U/L 9-50 ALT (test code = 2219) 42 U/L 5-50 TSH, THIRD [id number] 02:03:48 Test Item Value Reference Range Interpretation Comments TSH, THIRD 1.780 UIU/ML 0.400-4.100 UNLESS OTHERWI SE GENERATION (test INDICATED, ALL TESTING code = 2822) PERFORMED [facility], [facility]. [address] [place] [address] [facility] DIRECTOR: Yash DEWITTIA NUMBER [id number] CAP ACCREDITATION N O. [id number] CBC W/AUTO DIFF WITH [id number] 07:46:48 Test Item Value Reference Range Interpretation Comments WBC (test code = 6.3 K/UL 3.5-11.0 1001) RBC (test code = 4.96 M/UL 4.50-6.10 1002) HEMOGLOBIN (test code 15.2 G/DL 13.5-17.0 = 1003) HEMATOCRIT (test code 45.6 % 40.0-51.0 = 1004) MCV (test code = 91.9 fL 80.0-99.0 1005) MCH (test code = 30.6 PG 25.0-33.0 1006) MCHC (test code = 33.3 G/DL 31.0-36.0 1007) RDW (test code = 12.8 % 11.5-15.0 1038) NEUTROPHILS (test 53.3 % code = 1008) LYMPHOCYTES (test 36.6 % code = 1010) MONOCYTES (test code 6.0 % = 1011) EOSINOPHILS (test 2.7 % code = 1012) BASOPHILS (test code 1.1 % = 1013) IMMATURE GRANULOCYTES 0.3 % (test code = 1036) NUCLEATED RBCS (test 0.0 /100 WBC'S See_Comment [Aut omated code = 1065) message] The sy stem which generated this result transmitted reference range : 0.0. The refere nce range was not u sed to interpret th is result as normal/abnormal . PLATELET COUNT (test 276 K/UL 130-400 code = 1015) ABSOLUTE NEUTROPHILS 3.38 K/UL 1.50-7.50 (test code = 1066) ABSOLUTE LYMPHOCYTES 2.32 K/UL 1.00-4.00 (test code = 1067) ABSOLUTE MONOCYTES 0.38 K/UL 0.20-1.00 (test code = 1068) ABSOLUTE EOSINOPHILS 0.17 K/UL 0.00-0.50 (test code = 1040) ABSOLUTE BASOPHILS 0.07 K/UL 0.00-0.20 (test code = 1069) ABS IMMATURE 0.02 K/UL 0.00-0.10 GRANULOCYTES (test code = 1020) ABS NUCLEATED RBCS 0.00 K/UL 0.00-0.11 (test code = 91262) [id number] 00:00:00 Test Item Value Reference Range Interpretation Comments AMYLASE (test code = 220) 36 U/L [id number] 00:00:00 Test Item Value Reference Range Interpretation Comments LIPASE (test code = 2057) 19 U/L [id number] 00:00:00 Test Item Value Reference Range Interpretation Comments LIPASE (test code = 2057) 19 U/L COMPREHENSIVE METABOLIC [id number] 00:00:00 Test Item Value Reference Range Interpretation Comments GLUCOSE (test code = 2217) 102 MG/DL BUN (test code = 2207) 16 MG/DL CREATININE (test code = 2214) 0.65 MG/DL eGFR AMER. (test code 131 ML/MIN/1.73 = 54396) eGFR NON- AMER. (test 113 ML/MIN/1.73 code = 06242) CALC BUN/CREAT (test code = 25 RATIO 2235) SODIUM (test code = 2231) 140 MEQ/L POTASSIUM (test code = 2228) 4.6 MEQ/L CHLORIDE (test code = 2215) 103 MEQ/L CARBON DIOXIDE (test code = 24 MEQ/L 2205) CALCIUM (test code = 2209) 9.5 MG/DL PROTEIN, TOTAL (test code = 7.6 G/DL 2228) ALBUMIN (test code = 2201) 4.9 G/DL CALC GLOBULIN (test code = 2.7 G/DL 0) CALC A/G RATIO (test code = 1.8 RATIO 2233) BILIRUBIN, TOTAL (test code = 0.3 MG/DL 2206) ALKALINE PHOSPHATASE (test 42 U/L code = 2204) AST (test code = 2218) 13 U/L ALT (test code = 2219) 35 U/L LIPID [id number] 00:00:00 Test Item Value Reference Range Interpretation Comments CHOLESTEROL (test code = 2210) 193 MG/DL TRIGLYCERIDES (test code = 2232) 124 MG/DL HDL CHOLESTEROL (test code = 2220) 49 MG/DL CALC LDL CHOL (test code = 2237) 121 MG/DL RISK RATIO LDL/HDL (test code = 2.47 RATIO 8)
[2021-10-23] MEDS ORDERED: NA CHLORIDE 0.9% 1,000 ML ONE (07:39)
--- NOTE | 2021-10-23 08:16 | RAD REPORT ---
EXAM DESCRIPTION: US - UPPER EXTREMITY VENOUS BILAT - 10/23/2021 8:05 am CLINICAL HISTORY: Bilateral upper extremity pain COMPARISON: None. TECHNIQUE: Real-time sonographic evaluation of the bilateral upper extremity deep venous system was performed. FINDINGS: Normal compressibility, flow augmentation, phasic flow and spontaneous flow is identified in the bilateral deep venous system. Superficial veins also show good compression with no thrombus. N o intraluminal filling defects seen. IMPRESSION: No DVT in the bilateral upper extremities.
[2021-10-23 08:19] LABS: Albumin 3.9 g/dL (3.4-5.0); Bilirubin Total 0.4 mg/dL (0.2-1.0); Potassium 4.2 mmol/L (3.5-5.1); Protein, Total 7.4 g/dL (6.4-8.2)
--- NOTE | 2021-10-23 09:26 | ER ---
Nurse's Notes [facility] Name: Chilo Sher Jr Age: 51 yrs Sex: Male : 1970 Arrival Date: 10/23/2021 Time: 07:13 Bed 13 Private MD: Diagnosis: Myalgia;Dizziness and giddiness Presentation: 10/23 07:21 Chief complaint: Patient states: Bilateral arm soreness x 1 week, denies trauma; dizzy jl7 spells x 4 days. Coronavirus screen: At this time, the client does not indicate any symptoms associated with coronavirus-19. Ebola Screen: No symptoms or risks identified at this time. Risk Assessment: Do you want to hurt yourself or someone else? Patient reports no desire to harm self or others. 07:21 Method Of Arrival: Ambulatory [facility] 07:21 Acuity: INEZ 3 [facility] 07:21 Onset of symptoms was October 16, 2021. [facility] 08:18 Initial Sepsis Screen: Does the patient meet any 2 criteria? No. Patient's initial [facility] sepsis screen is negative. Does the patient have a suspected source of infection? No. Patient's initial sepsis screen is negative. Triage Assessment: 07:23 General: Appears in no apparent distress. uncomfortable, Behavior is calm, cooperative, jl7 appropriate for age. Pain: Complains of pain in bilateral upper arms Pain currently is 5 out of 10 on a pain scale. Neuro: Level of Consciousness is awake, alert, obeys commands, Oriented to person, place, time, situation, Reports dizziness, since 10/20/21. Historical: - Allergies: 07:23 No Known Allergies; jl7 - Home Meds: 07:23 None [Active]; jl7 - PMHx: 07:23 None; jl7 - PSHx: 07:23 None; jl7 - Immunization history:: Client reports receiving the 2nd dose of the Covid vaccine. - Social history:: Smoking status: Patient denies any tobacco usage or history of. - Family history:: not pertinent. - Hospitalizations: : No recent hospitalization is reported. Screenin:28 Abuse screen: Denies threats or abuse. Denies injuries from another. Nutritional 6 screening: No deficits noted. Tuberculosis screening: No symptoms or risk factors identified. Fall Risk None identified. Assessment: 07:28 General: Appears in no apparent distress. Behavior is calm, cooperative. Neuro: Level jh6 of Consciousness is awake, alert, obeys commands, Oriented to person, place, time, situation, Appropriate for age Cad Administrator are equal bilaterally Moves all extremities. Gait is steady, Speech is normal, Facial symmetry appears normal, Pupils are PERRLA, Reports dizziness. GI: Reports diarrhea. 08:50 Reassessment: No changes from previously documented assessment. Patient and/or family 6 updated on plan of care and expected duration. Pain level reassessed. Vital Signs: 07:21 Weight 85.28 kg; Height 5 ft. 6 in. (167.64 cm); Pain 5/10; jl7 07:27 BP 139 / 90; Pulse 61; Resp 17; Temp 97.7(O); Pulse Ox 99% ; Weight 90.72 kg; Height 5 jh6 ft. 10 in. (177.80 cm); Pain 2/10; 08:30 BP 114 / 72; Pulse 59; Resp 17; Pulse Ox 100% ; Pain 2/10; jh6 07:27 Body Mass Index 28.70 (90.72 kg, 177.80 cm) 6 ED Course: 07:13 Patient arrived in ED. am2 07:14 Schuyler Lanza MD is Attending Physician. rn 07:19 Jesi Davis, LAURE is Primary Nurse. jh6 07:23 Triage completed. jl7 07:23 Arm band placed on right wrist. jl7 07:30 Placed in gown. Bed in low position. Call light in reach. Side rails up X 1. jh6 07:52 UPPER EXTREMITY VENOUS BILAT Sent. jh6 08:06 UPPER EXTREMITY VENOUS BILAT In Process Unspecified. EDMS 08:24 SARS-COV-2 RT PCR (Document "Date of Onset" if Symptomatic) Sent. kc6 09:50 No provider procedures requiring assistance completed. jh6 10:00 IV discontinued, intact, bleeding controlled, No redness/swelling at site. Pressure jh6 dressing applied. Administered Medications: 07:42 Drug: NS 0.9% 1000 ml Route: IV; Rate: 1000 ml; Site: right antecubital; jh6 Medication: 08:19 VIS not applicable for this client. 6 Outcome: 09:26 Discharge ordered by . rn 10:00 Discharged to home ambulatory. jh6 10:00 Condition: good 10:00 Discharge instructions given to patient. 10:00 Patient left the ED. jh6 Signatures: Dispatcher [employer] EDSchuyler Newton MD MD rn Leal, Jahala, RN RN jl7 Sabi Mcgovern Jennifer, RN RN jh6 Cecilia Draper6
--- NOTE | 2021-10-23 09:27 | EDPHYS ---
Physician Documentation [facility] Name: Chilo Sher Jr Age: 51 yrs Sex: Male : 1970 Arrival Date: 10/23/2021 Time: 07:13 Bed 13 Private MD: ED Physician Schuyler Lanza HPI: 10/23 07:28 This 51 yrs old Male presents to ER via Ambulatory with complaints of muscle rn aches, Dizziness. 07:28 The patient presents with dizziness, lightheadedness. Onset: The symptoms/episode rn began/occurred 4 day(s) ago. Context: occurred at home, occurred while the patient was standing. Modifying factors: The symptoms are alleviated by lying down, the symptoms are aggravated by standing up, changing position. Associated signs and symptoms: Pertinent negatives: abdominal pain, chest pain, focal weakness, head injury, headache, palpitations, seizure, shortness of breath, syncope, vomiting. Severity of symptoms: At their worst the symptoms were mild in the emergency department the symptoms are unchanged. The patient has not experienced similar symptoms in the past. The patient has not recently seen a physician. Pt reports dizziness for 4 days, seen at clinic, bloodwork ordered and not back yet. Reports + COVID exposure last week. Reports muscle aches, worse in arms, and assoc with diarrhea. No vomiting. No chest pain/sob/cough/abd pain. No urinary symptoms. No medical problems and no medication.. Historical: - Allergies: 07:23 No Known Allergies; jl7 - Home Meds: 07:23 None [Active]; jl7 - PMHx: 07:23 None; jl7 - PSHx: 07:23 None; jl7 - Immunization history:: Client reports receiving the 2nd dose of the Covid vaccine. - Social history:: Smoking status: Patient denies any tobacco usage or history of. - Family history:: not pertinent. - Hospitalizations: : No recent hospitalization is reported. ROS: 07:28 Constitutional: Negative for fever, chills, and weight loss, Eyes: Negative for injury, rn pain, redness, and discharge, ENT: Negative for injury, pain, and discharge, Neck: Negative for injury, pain, and swelling, Cardiovascular: Negative for chest pain, palpitations, and edema, Respiratory: Negative for shortness of breath, cough, wheezing, and pleuritic chest pain, Abdomen/GI: Negative for abdominal pain, nausea, vomiting, and constipation, Back: Negative for injury and pain, : Negative for injury, bleeding, discharge, and swelling, MS/Extremity: Negative for injury and deformity, Skin: Negative for injury, rash, and discoloration, Neuro: Negative for headache, numbness, tingling, and seizure. Exam: 07:28 Constitutional: This is a well developed, well nourished patient who is awake, alert, rn and in no acute distress. Ambulatory to room without difficulty or assistance. Head/Face: Normocephalic, atraumatic. Eyes: Periorbital areas with no swelling, redness, or edema. ENT: dry MM Neck: Trachea midline, no thyromegaly or masses palpated, and no cervical lymphadenopathy. Supple, full range of motion without nuchal rigidity, or vertebral point tenderness. No Meningismus. Cardiovascular: Regular rate and rhythm. No pulse deficits. Respiratory: No increased work of breathing, no retractions or nasal flaring. Abdomen/GI: Soft, non-tender Skin: Warm, dry MS/ Extremity: Pulses equal, no cyanosis. FROM. Equal circumference. Neuro: Awake and alert, GCS 15, oriented to person, place, time, and situation. Cranial nerves II-XII grossly intact. Motor strength 5/5 in all extremities. Sensory grossly intact. Cerebellar exam normal. Normal gait. 09:25 ECG was reviewed by the Attending Physician. rn Vital Signs: 07:21 Weight 85.28 kg; Height 5 ft. 6 in. (167.64 cm); Pain 5/10; jl7 07:27 BP 139 / 90; Pulse 61; Resp 17; Temp 97.7(O); Pulse Ox 99% ; Weight 90.72 kg; Height 5 jh6 ft. 10 in. (177.80 cm); Pain 2/10; 08:30 BP 114 / 72; Pulse 59; Resp 17; Pulse Ox 100% ; Pain 2/10; jh6 07:27 Body Mass Index 28.70 (90.72 kg, 177.80 cm) 6 MDM: 07:14 Patient medically screened. rn 09:26 Differential diagnosis: cardiac arrhythmia, generalized weakness, hypovolemia, rn idiopathic dizziness, COVID. Data reviewed: vital signs, nurses notes, lab test result(s), EKG, and as a result, I will discharge patient. Counseling: I had a detailed discussion with the patient and/or guardian regarding: the historical points, exam findings, and any diagnostic results supporting the discharge/admit diagnosis, lab results, the need for outpatient follow up, to return to the emergency department if symptoms worsen or persist or if there are any questions or concerns that arise at home. Response to treatment: the patient's symptoms have mildly improved after treatment, and as a result, I will discharge patient. Special discussion: I discussed with the patient/guardian in detail that at this point there is no indication for admission to the hospital. It is understood, however, that if the symptoms persist or worsen the patient needs to return immediately for re-evaluation. 10/23 07:28 Order name: SARS-COV-2 RT PCR (Document "Date of Onset" if Symptomatic); Complete Time: rn :10/23 07:28 Order name: BMP rn 10/23 07:28 Order name: CMP; Complete Time: rn 10/23 07:37 Order name: UPPER EXTREMITY VENOUS BILAT; Complete Time: : EDMS 10/23 07:28 Order name: IV Start; Complete Time: 07:42 rn 10/23 09:07 Order name: EKG; Complete Time: : rn 10/23 09:07 Order name: EKG - Nurse/Tech; Complete Time: :37 rn EC:25 Rate is 45 beats/min. Rhythm is regular. QRS [place] is Normal. MI interval is normal. QRS rn interval is normal. QT interval is normal. No Q waves. T waves are Normal. No ST changes noted. Clinical impression: Sinus bradycardia. Interpreted by me. Reviewed by me. Administered Medications: 07:42 Drug: NS 0.9% 1000 ml Route: IV; Rate: 1000 ml; Site: right antecubital; jh6 Disposition Summary: 10/23/21 09:26 Discharge Ordered Location: Home rn Problem: new rn Symptoms: have improved rn Condition: Stable rn Diagnosis - Myalgia rn - Dizziness and giddiness rn Followup: rn - With: Private Physician - When: As needed - Reason: Recheck today's complaints, Re-evaluation by your physician Discharge Instructions: - Discharge Summary Sheet rn - Dizziness rn - Muscle Pain, Adult rn Forms: - Medication Reconciliation Form rn - Thank You Letter rn - Antibiotic learning consultant - Prescription Opioid Use rn - Work release form 6 Signatures: Dispatcher [employer] EDMS Schuyler Lanza MD MD rn Leal, Jahala, RN RN jl7 Jesi Davis RN RN jh6 Corrections: (The following items were deleted from the chart) 07:31 07:28 Constitutional: Negative for fever, chills, and weight loss, Eyes: Negative for rn injury, pain, redness, and discharge, ENT: Negative for injury, pain, and discharge, Neck: Negative for injury, pain, and swelling, Cardiovascular: Negative for chest pain, palpitations, and edema, Respiratory: Negative for shortness of breath, cough, wheezing, and pleuritic chest pain, Abdomen/GI: Negative for abdominal pain, nausea, vomiting, and constipation, Back: Negative for injury and pain, : Negative for injury, bleeding, discharge, and swelling, MS/Extremity: Negative for injury and deformity, Skin: Negative for injury, rash, and discoloration, Neuro: Negative for headache, numbness, tingling, and seizure, rn 07:37 07:32 Extrem Venous W Compression [id number] ordered. EDMS EDMS
[2021-10-23 10:10] VITALS: TEMP 97.7
[2021-10-23 10:13] VITALS: BP 114/72; O2SAT 100
[2021-10-23] MEDS ORDERED: MIDAZOLAM HCL 2 MG/2 ML INJ ONE (10:21)
[2021-10-23] MEDS ORDERED: FENTANYL CITR 100 MCG/2 ML ONE (10:22)
--- NOTE | 2021-10-24 10:41 | EKG ---
Test Date: 2021-10-23 Test Time: 09:09:10 Rivet Passer: ARTI MEASUREMENT RESULTS: Intervals: Rate: 45 [place]: 182 QRSD: 114 QT: 436 QTc: 377 [place]: P: 76 [place]: 182 QRS: 63 T: 29 INTERPRETIVE STATEMENTS: Sinus bradycardia Otherwise normal ECG Compared to ECG 03/05/2016 20:05:20 No significant changes Electronically Signed On 10-24-21 10:36:24 CDT by Bo Rivas
== END 2021-10-23 10:00 | disposition home or self-care (01) ==
LOC: ER 07:07
DX: M79.10 Myalgia, unspecified site (principal); R42 Dizziness and giddiness; Z20.822 Contact with and (suspected) exposure to COVID-19
CPT/HCPCS: 36415; 80053; 93005; 93970; 99283; J2250; J3010; J7030; U0003

== ENCOUNTER 2021-11-24 17:15 | Emergency (ER) | payer OTHER ==
--- OUTSIDE RECORDS SUMMARY | 2021-11-24 17:18 | XMS REPORT | Continuity of Care Document ---
:[address] [facility] t Address [address] [place] [address] Care Team Providers Name Role Phone Navya Christina Primary Care Physician [phone] Problems This patient has no known problems. [...] 800 mg 6-26 tablet 00:00: 00 omeprazole 2018-03 No 1mg 20 mg 1-18 capsule,del 00:00: ayed 00 release loratadine 2018-03 No 1mg 10 mg 1-18 tablet 00:00: 00 naproxen 2016-03 No 1mg 500 mg 2-04 tablet 00:00: 00 prednisone 2016-03 No mg 20 mg 2-04 tablet 00:00: 00 cyclobenzap 2016-03 No 1mg rine 10 mg 2-04 tablet 00:00: 00 gabapentin 2016-03 No 1mg 300 mg 2-04 capsule 00:00: 00 gentamicin 2016- No 3% 0.3 % eye 7-13 drops 00:00: 00 ranitidine No 1mg 150 mg 7-13 tablet 00:00: [...] Goal Plan of Care Note [code = 21859-9] Goal Plan of Care Note [code = 57586-6] Goal Plan of Care Note [code = 11203-0] Goal Plan of Care Note [code = 76277-3] Goal Plan of Care Note [code = 55199-2] Goal Plan of Care Note [code = 13356-8] Goal Plan of Care Note [code = 73158-2] Goal Plan of Care Note [code = 73154-7] Goal Plan of Care Note [code = 26686-2] Goal Plan of Care Note [code = 50859-4] Goal Plan of Care Note [code = 52729-9] Goal Plan of Care Note [code = 64241-5] Goal Plan of Care Note [code = 30898-8] Goal Plan of Care Note [code = 87744-1] Goal Plan of Care Note [code = 75374-2] Goal Plan of Care Note [code = 28400-3] Goal Plan of Care Note [code = 12163-8] Goal Plan of Care Note [code = 29732-9] Goal Plan of Care Note [code = 74400-0] Goal Plan of Care Note [code = 26409-7] Goal Plan of Care Note [code = 90380-4] Goal Plan of Care Note [code = 89867-2] Encounters Start End Encounter Admission Attending Care Care Encounter Source Date/Time Date/Time Type Type Clinicians Facility Department ID 2021-10-21 2021-10-21 Outpatient [id number] 00:00:00 00:00:00 Visit [id number] Results Test Description Test Time Test Comments Results Result Comments Source COMPREHENSIVE METABOLIC PANEL 2021-10-23 06:54:18 Test Item Value Reference Range Interpretation Comme nts GLUCOSE (test code = 2216) 99 MG/DL 70-99 BUN (test code = 220) 20 MG/DL 6-20 CREATININE (test code = 0.78 MG/DL 0.80-1.40 L 2213) eGFR (2020 CKD-EPI) (test 107 ML/MIN/1.73 >60 code = 68283) CALC BUN/CREAT (test code = 26 RATIO 6-28 2234) SODIUM (test code = 223) 144 MEQ/L 133-146 POTASSIUM (test code = 2228) 5.0 MEQ/L 3.5-5.4 CHLORIDE (test code = 2215) 102 MEQ/L 95-107 CARBON DIOXIDE (test code = 19 MEQ/L 19-31 2205) CALCIUM (test code = 220) 10.0 MG/DL 8.5-10.5 PROTEIN, TOTAL (test code = 8.1 G/DL 6.1-8.3 2228) ALBUMIN (test code = 220) 5.3 G/DL 3.5-5.2 H CALC GLOBULIN (test [...] = 2219) 42 U/L 5-50 TSH, THIRD [id number] 02:03:48 Test Item Value Reference Range Interpretation Comments TSH, THIRD 1.780 UIU/ML 0.400-4.100 UNLESS OTHERWI SE GENERATION (test INDICATED, ALL TESTING code = 2821) PERFORMED [facility], [place] [address] [place] [address] ELA ALEIDA DIRECTOR: TOO FLORENTINO M.D. CLIA NUMBER [id number] CAP ACCREDITATION N O. [id number] CBC W/AUTO DIFF WITH [id number] 07:46:48 Test Item Value Reference Range Interpretation [...] RBCS 0.00 K/UL 0.00-0.11 (test code = 76347) [id number] 00:00:00 Test Item Value Reference Range Interpretation Comments AMYLASE (test code = 2205) 36 U/L [id number] 00:00:00 Test Item Value Reference Range Interpretation Comments LIPASE (test code = 2057) 19 U/L [id number] 00:00:00 Test Item Value Reference Range Interpretation Comments LIPASE (test code = 2057) 19 U/L COMPREHENSIVE METABOLIC [id number] 00:00:00 Test Item Value Reference Range Interpretation Comments GLUCOSE (test code = 2217) 102 MG/DL BUN (test code = 8) 16 MG/DL CREATININE (test code = 2214) 0.65 MG/DL eGFR AMER. (test code 131 ML/MIN/1.73 = 23958) eGFR NON- AMER. (test 113 ML/MIN/1.73 code = 19897) CALC BUN/CREAT (test code = 25 RATIO 5) SODIUM (test code = 2231) 140 MEQ/L POTASSIUM (test code = 2228) 4.6 MEQ/L CHLORIDE (test code = 2215) 103 MEQ/L CARBON DIOXIDE (test code = 24 MEQ/L 2205) CALCIUM (test code = 2209) 9.5 MG/DL PROTEIN, TOTAL (test code = 7.6 G/DL 2228) ALBUMIN (test code = 2201) 4.9 G/DL CALC GLOBULIN (test code = 2.7 G/DL 2239) CALC A/G RATIO (test code = 1.8 RATIO 2233) BILIRUBIN, TOTAL (test code = 0.3 MG/DL 2206) ALKALINE PHOSPHATASE (test 42 U/L code = 2204) AST (test code = 2218) 13 U/L ALT (test code = 2219) 35 U/L LIPID [id number] 00:00:00 Test Item Value Reference Range Interpretation Comments CHOLESTEROL (test code = 2210) 193 MG/DL TRIGLYCERIDES (test code = 2232) 124 MG/DL HDL CHOLESTEROL (test code = 2220) 49 MG/DL CALC LDL CHOL (test code = 2237) 121 MG/DL RISK RATIO LDL/HDL (test code = 2.47 RATIO 2238)
--- NOTE | 2021-11-24 19:54 | EDPHYS ---
Physician Documentation [facility] Name: Chilo Sher Jr Age: 51 yrs Sex: Male : 1970 Arrival Date: 11/24/2021 Time: 17:18 Bed Treatment Private MD: Sathya Sparks HPI: 11/24 19:56 This 51 yrs old Male presents to ER via Ambulatory with complaints of snw Headache, Dizziness, Sore Throat, Diarrhea. 19:56 The patient complains of pain to the forehead. The patient describes the headache as a snw pressure. Onset: The symptoms/episode began/occurred gradually, 3 day(s) ago, and became persistent. Severity of symptoms: At its worst the pain was. 19:57 The patient or guardian reports cough, flu symptoms. Onset: The symptoms/episode snw began/occurred gradually, 3 day(s) ago, and became persistent. Associated signs and symptoms: Pertinent positives: diarrhea, earache, rhinorrhea, sore throat. Severity of symptoms: At their worst the symptoms were moderate. The patient has experienced a previous episode. The patient has not recently seen a physician. Historical: - Allergies: 18:25 No Known Allergies; bm7 - Home Meds: 18:25 None [Active]; bm7 - PMHx: 18:25 None; bm7 - PSHx: 18:25 None; bm7 - Immunization history:: Adult Immunizations up to date, Client reports receiving the 2nd dose of the Covid vaccine, Client reports receiving the 1st dose of the Covid vaccine. - Social history:: Smoking status: Patient denies any tobacco usage or history of. ROS: 19:55 Eyes: Negative for injury, pain, redness, and discharge. snw 19:55 Neck: Negative for injury, pain, and swelling, Cardiovascular: Negative for chest pain, palpitations, and edema, Respiratory: Negative for shortness of breath, cough, wheezing, and pleuritic chest pain. 19:55 Back: Negative for injury and pain, : Negative for injury, bleeding, discharge, and swelling, MS/Extremity: Negative for injury and deformity, Skin: Negative for injury, rash, and discoloration. 19:55 Constitutional: Positive for fatigue, malaise. 19:55 ENT: Positive for sore throat, headache. 19:55 Abdomen/GI: Positive for diarrhea. 19:55 Neuro: Positive for headache. Exam: 19:54 Head/Face: Normocephalic, atraumatic. Eyes: Pupils equal round and reactive to light, snw extra-ocular motions intact. Lids and lashes normal. Conjunctiva and sclera are non-icteric and not injected. Cornea within normal limits. Periorbital areas with no swelling, redness, or edema. 19:54 Neck: Trachea midline, no thyromegaly or masses palpated, and no cervical lymphadenopathy. Supple, full range of motion without nuchal rigidity, or vertebral point tenderness. No Meningismus. Chest/axilla: Normal chest wall appearance and motion. Nontender with no deformity. No lesions are appreciated. Cardiovascular: Regular rate and rhythm with a normal S1 and S2. No gallops, murmurs, or rubs. Normal PMI, no JVD. No pulse deficits. 19:54 Abdomen/GI: Soft, non-tender, with normal bowel sounds. No distension or tympany. No guarding or rebound. No evidence of tenderness throughout. Back: No spinal tenderness. No costovertebral tenderness. Full range of motion. Skin: Warm, dry with normal turgor. Normal color with no rashes, no lesions, and no evidence of cellulitis. MS/ Extremity: Pulses equal, no cyanosis. Neurovascular intact. Full, normal range of motion. Neuro: Awake and alert, GCS 15, oriented to person, place, time, and situation. Cranial nerves II-XII grossly intact. Motor strength 5/5 in all extremities. Sensory grossly intact. Cerebellar exam normal. Normal gait. Psych: Awake, alert, with orientation to person, place and time. Behavior, mood, and affect are within normal limits. 19:54 Constitutional: The patient appears alert, awake, congested 19:54 ENT: Nose: Nasal mucosa: edematous, nasal drainage, that is minimal, and is seen coming from both nares, that is clear, Posterior pharynx: erythema, that is moderate, Voice: is normal. 19:54 ENT: TM's: erythema, that is mild, that is moderate, bilaterally. 19:54 Respiratory: the patient does not display signs of respiratory distress, Respirations: normal, Breath sounds: + upper airway congestion. Vital Signs: 18:23 BP 125 / 81; Pulse 76; Resp 16; Temp 98.3(TE); Pulse Ox 99% on R/A; Weight 84.82 kg 7 (R); Height 5 ft. 8 in. (172.72 cm); Pain 2/10; 19:55 BP 119 / 72; Pulse 68; Resp 16 S; Pulse Ox 95% on R/A; bb 20:36 BP 120 / 74; Pulse 72; Resp 16 S; Temp 98.3(O); Pulse Ox 98% on R/A; bb 18:23 Body Mass Index 28.43 (84.82 kg, 172.72 cm) bm7 MDM: 19:24 Patient medically screened. snw 19:53 Data reviewed: vital signs, nurses notes. Data interpreted: Pulse oximetry: on room air snw is 99 %. Interpretation: normal. Counseling: I had a detailed discussion with the patient and/or guardian regarding: the historical points, exam findings, and any diagnostic results supporting the discharge/admit diagnosis, lab results, the need for outpatient follow up, to return to the emergency department if symptoms worsen or persist or if there are any questions or concerns that arise at home. Special discussion: Based on the history and exam findings, there is no indication for further emergent testing or inpatient evaluation. I discussed with the patient/guardian the need to see the primary care provider for further evaluation of the symptoms. 11/24 18:23 Order name: Flu; Complete Time: 19:34 [facility] 11/24 18:23 Order name: Strep; Complete Time: 18:48 [facility] 11/24 18:25 Order name: SARS-COV-2 RT PCR (Document "Date of Onset" if Symptomatic) [facility] 11/24 18:25 Order name: Influenza Screen (A ; Complete Time: 18:58 EDMS 11/24 18:49 Order name: Throat Culture EDMS Administered Medications: 20:33 Drug: Ketorolac 60 mg Route: IM; Site: left gluteus; bb 20:35 Follow up: Response: Medication administered at discharge. bb 20:33 Drug: Bicillin L-A (penicillin G Benzathine) 1.2 million units Route: IM; Site: right bb gluteus; 20:35 Follow up: Response: Medication administered at discharge. bb Disposition Summary: 11/24/21 19:53 Discharge Ordered Location: Home snw Condition: Stable snw Diagnosis - Acute sinusitis, unspecified snw Followup: snw - With: Emergency Department - When: As needed - Reason: Worsening of condition Followup: snw - With: Private Physician - When: 2 - 3 days - Reason: Recheck today's complaints, Continuance of care, Re-evaluation by your physician Discharge Instructions: - Discharge Summary Sheet snw - Sinusitis, Adult snw Forms: - Medication Reconciliation Form snw - Thank You Letter snw - Antibiotic Education snw - Prescription Opioid Use snw - Work release form bb Prescriptions: - Prednisone 20 mg Oral Tablet - take 2 tablets by ORAL route once daily for 5 days; 10 tablet; Refills: 0, snw Product Selection Permitted Signatures: Dispatcher [employer] EDKate Rothman FNP-C [employer] Louise Fraire, RN RN bb Annita Dennis, RN RN bm7
--- NOTE | 2021-11-24 19:54 | ER ---
Nurse's Notes [facility] Name: Chilo Sher Jr Age: 51 yrs Sex: Male : 1970 Arrival Date: 11/24/2021 Time: 17:18 Bed Treatment Private MD: Diagnosis: Acute sinusitis, unspecified Presentation: 11/24 18:23 Chief complaint: Patient states: My kids are sick and I think I caught what they have. bm7 I have a sore throat, headache, cough, and diarrhea. Coronavirus screen: Client presents with at least one sign or symptom that may indicate coronavirus-19. Standard/surgical mask placed on the client. Ebola Screen: No symptoms or risks identified at this time. 18:23 Method Of Arrival: Ambulatory 7 18:25 Initial Sepsis Screen: Does the patient meet any 2 criteria? No. Patient's initial bm7 sepsis screen is negative. Does the patient have a suspected source of infection? No. Patient's initial sepsis screen is negative. Risk Assessment: Do you want to hurt yourself or someone else? Patient reports no desire to harm self or others. Onset of symptoms is unknown. 18:25 Acuity: INEZ 4 bm7 Triage Assessment: 18:25 Headache History: Denies prior headaches. General: Appears in no apparent distress. bm7 uncomfortable, Behavior is calm, cooperative, appropriate for age. Pain: Complains of pain in forehead Pain currently is 3 out of 10 on a pain scale. Pain began gradually, Also complains of decreased appetite. EENT: No deficits noted. No signs and/or symptoms were reported regarding the EENT system. Neuro: Level of Consciousness is awake, alert, obeys commands. Cardiovascular: No deficits noted. Respiratory: Reports cough that is non-productive, dry, hacking, persistent Airway is patent Respiratory effort is even, unlabored, Respiratory pattern is regular, symmetrical, Breath sounds are clear bilaterally. GI: Reports diarrhea. : No deficits noted. No signs and/or symptoms were reported regarding the genitourinary system. Derm: No deficits noted. No signs and/or symptoms reported regarding the dermatologic system. Musculoskeletal: No deficits noted. No signs and/or symptoms reported regarding the musculoskeletal system. Historical: - Allergies: 18:25 No Known Allergies; bm7 - Home Meds: 18:25 None [Active]; bm7 - PMHx: 18:25 None; bm7 - PSHx: 18:25 None; bm7 - Immunization history:: Adult Immunizations up to date, Client reports receiving the 2nd dose of the Covid vaccine, Client reports receiving the 1st dose of the Covid vaccine. - Social history:: Smoking status: Patient denies any tobacco usage or history of. Assessment: 20:33 Reassessment: Patient is alert, oriented x 3, equal unlabored respirations, skin bb warm/dry/pink. pt verbalized understanding of and agrees to plan of care discharge instructions given pt ambulated with steady gait to exit. Vital Signs: 18:23 BP 125 / 81; Pulse 76; Resp 16; Temp 98.3(TE); Pulse Ox 99% on R/A; Weight 84.82 kg 7 (R); Height 5 ft. 8 in. (172.72 cm); Pain 2/10; 19:55 BP 119 / 72; Pulse 68; Resp 16 S; Pulse Ox 95% on R/A; bb 20:36 BP 120 / 74; Pulse 72; Resp 16 S; Temp 98.3(O); Pulse Ox 98% on R/A; bb 18:23 Body Mass Index 28.43 (84.82 kg, 172.72 cm) 7 ED Course: 17:18 Patient arrived in ED. mr 17:56 HaqueKate, [facility] snw 17:57 Sathya Haney MD is Attending Physician. snw 18:25 Triage completed. bm7 18:25 Arm band placed on left wrist. bm7 18:27 Patient placed in waiting room, Patient notified of wait time. bm7 18:29 Influenza Screen (A Sent. kc6 18:29 SARS-COV-2 RT PCR (Document "Date of Onset" if Symptomatic) Sent. kc6 18:29 Strep Sent. kc6 18:29 Flu Sent. kc6 20:21 Louise Fraire, RN is Primary Nurse. bb 20:33 Patient has correct armband on for positive identification. Call light in reach. bb 20:33 No provider procedures requiring assistance completed. Patient did not have IV access bb during this emergency room visit. Administered Medications: 20:33 Drug: Ketorolac 60 mg Route: IM; Site: left gluteus; bb 20:35 Follow up: Response: Medication administered at discharge. bb 20:33 Drug: Bicillin L-A (penicillin G Benzathine) 1.2 million units Route: IM; Site: right bb gluteus; 20:35 Follow up: Response: Medication administered at discharge. bb Medication: 20:33 VIS not applicable for this client. bb Outcome: 19:53 Discharge ordered by MD. simms 20:33 Discharged to home ambulatory. bb 20:33 Condition: stable 20:33 Discharge instructions given to patient, Instructed on discharge instructions, follow up and referral plans. medication usage, Demonstrated understanding of instructions, follow-up care, medications, Prescriptions given X 1. 20:41 Patient left the ED. bb Signatures: Kate Haque, LICENSED CERTIFIED ORTHOTIST-C LICENSED CERTIFIED ORTHOTIST-Csnw Yi Hurd Brenda, RN RN Annita Galindo, LAURE RN Cecilia Samuels6
[2021-11-24] MEDS ORDERED: KETOROLAC 30 MG/ML INJ ONE (20:33)
[2021-11-24] MEDS ORDERED: PEN G BENZ LA 1.2MU/2ML SYRINGE IM ONE (20:33)
[2021-11-25 00:21] VITALS: TEMP 98.3
[2021-11-25 00:25] VITALS: BP 120/74; O2SAT 98
== END 2021-11-24 20:41 | disposition home or self-care (01) ==
LOC: ER 17:15
DX: J01.90 Acute sinusitis, unspecified (principal); Z20.822 Contact with and (suspected) exposure to COVID-19
CPT/HCPCS: 87070; 87081; 87804 ×2; 96372; 99283; U0003; J0561

== ENCOUNTER 2022-07-31 11:51 | Emergency (ER) | payer OTHER, SELFPAY ==
--- OUTSIDE RECORDS SUMMARY | 2022-07-31 11:54 | XMS REPORT | Continuity of Care Document ---
:1970 Author Organization [facility] t Address [address] [facility] [address] [place] [address] Care Team Providers Name Role Phone Navya Christina Primary Care Physician [phone] Problems This patient has no known problems. [...] 300 mg 2-04 capsule 00:00: 00 gentamicin No 3% 0.3 % eye 7-13 drops [...] Goal Plan of Care Note [code = 54145-4] Goal Plan of Care Note [code = 52706-6] Goal Plan of Care Note [code = 84768-4] Goal Plan of Care Note [code = 83381-6] Goal Plan of Care Note [code = 78881-5] Goal Plan of Care Note [code = 83172-8] Goal Plan of Care Note [code = 73500-2] Goal Plan of Care Note [code = 91588-7] Goal Plan of Care Note [code = 59048-4] Goal Plan of Care Note [code = 36039-2] Goal Plan of Care Note [code = 63175-7] Goal Plan of Care Note [code = 61653-9] Goal Plan of Care Note [code = 51447-2] Goal Plan of Care Note [code = 64048-1] Goal Plan of Care Note [code = 30413-1] Goal Plan of Care Note [code = 99253-2] Goal Plan of Care Note [code = 77873-9] Goal Plan of Care Note [code = 40239-1] Goal Plan of Care Note [code = 37180-1] Goal Plan of Care Note [code = 76148-5] Goal Plan of Care Note [code = 92122-9] Goal Plan of Care Note [code = 63849-5] Encounters Start End Encounter Admission Attending Care Care Encounter Source Date/Time Date/Time Type Type Clinicians Facility Department ID 2021-10-21 2021-10-21 Outpatient [id number] 00:00:00 00:00:00 Visit [id number] Results Test Description Test Time Test Comments Results Result Comments Source COMPREHENSIVE METABOLIC PANEL 2021-10-23 06:54:18 Test Item Value Reference Range Interpretation Comme nts GLUCOSE (test code = 2216) 99 MG/DL 70-99 BUN (test code = 220) 20 MG/DL 6-20 CREATININE (test code = 0.78 MG/DL 0.80-1.40 L 2213) eGFR (2020 CKD-EPI) (test 107 ML/MIN/1.73 >60 code = 95882) CALC BUN/CREAT (test code = 26 RATIO [...] = 2219) 42 U/L 5-50 TSH, THIRD [id number] 02:03:48 Test Item Value Reference Range Interpretation Comments TSH, THIRD 1.780 UIU/ML 0.400-4.100 UNLESS OTHERWI SE GENERATION (test INDICATED, ALL TESTING code = 2821) PERFORMED [facility], [place] [place] [address] ELA ALEIDA DIRECTOR: TOO FLORENTINO M.D. CLIA NUMBER [id number] CAP ACCREDITATION N O. [id number] CBC W/AUTO DIFF WITH [id number] 07:46:48 Test Item Value Reference Range Interpretation [...] RBCS 0.00 K/UL 0.00-0.11 (test code = 38718) [id number] 00:00:00 Test Item Value Reference Range Interpretation Comments AMYLASE (test code = 2205) 36 U/L [id number] 00:00:00 Test Item Value Reference Range Interpretation Comments LIPASE (test code = 2057) 19 U/L [id number] 00:00:00 Test Item Value Reference Range Interpretation Comments LIPASE (test code = 2057) 19 U/L COMPREHENSIVE METABOLIC [id number] 00:00:00 Test Item Value Reference Range Interpretation Comments GLUCOSE (test code = 2217) 102 MG/DL BUN (test code = 8) 16 MG/DL CREATININE (test code = 2214) 0.65 MG/DL eGFR AMER. (test code 131 ML/MIN/1.73 = 67838) eGFR NON- AMER. (test 113 ML/MIN/1.73 code = 41318) CALC BUN/CREAT (test code = 25 RATIO [...] (test code = 2219) 35 U/L LIPID [id number] 00:00:00 Test Item Value Reference Range Interpretation Comments CHOLESTEROL (test code = 2210) 193 MG/DL TRIGLYCERIDES (test code = 2232) 124 MG/DL HDL CHOLESTEROL (test code = 2220) 49 MG/DL CALC LDL CHOL (test code = 2237) 121 MG/DL RISK RATIO LDL/HDL (test code = 2.47 RATIO 2238)
--- NOTE | 2022-07-31 12:47 | RAD REPORT ---
EXAM DESCRIPTION: CT - Stone Protocol - 07/31/2022 12:24 pm CLINICAL HISTORY: Flank pain. low back pain, abdominal pain COMPARISON: Abdomen Pelvis W Contrast dated 11/09/2020 TECHNIQUE: Axial images were obtained without oral or IV contrast. Lack of contrast limits solid org an and vascular assessment. The wyoqc-mg-bdjc spans the entirety of the system partially obscuring uppermost abdomen and lung bases. Coronal reformatted images were obtained and reviewed. All CT scans are performed using dose optimization technique as appropriate and may include automated exposure control or mA/KV adjustment according to patient size. FINDINGS: The lower lung pinzon are clear. Imaged portions of the liver and spleen show no suspicious findings on non-contrast imaging. The panc reas and adrenal glands are normal. No pathologic lymphadenopathy in the abdomen or pelvis. No urinary tract stones or obstructive uropathy. Projecting off the inferolateral aspect of the right kidney there is a 26 x 25 mm solid-appearing lesion. This is incompletely assessed due to lack of co ntrast. No bowel obstruction, free air, free fluid or abscess. Normal appendix noted.Moderate stool is presen t throughout the colon. No significant bony abnormality. IMPRESSION: No urinary tract stones or obstructive uropathy. 26 x 25 mm solid-appearing lesion projecting off of the inferolateral aspect right kidney, could be a solid mass. Recommend CT abdomen pelvis with IV contrast for further evaluation.
[2022-07-31 12:52] LABS: Absolute Lymphocytes (CBC) 2.8 K/uL (0.7-4.9); Hematocrit 40.1 % (39.6-49.0); MCV 90.7 fL (80-100); MPV 8.1 fL (7.6-11.3); RBC Red Blood Cell Count 4.42 M/uL (4.33-5.43)
[2022-07-31] MEDS ORDERED: KETOROLAC 30 MG/ML INJ ONE (12:55)
[2022-07-31] MEDS ORDERED: MORPHINE 4 MG/ML SYR ONE (12:55)
[2022-07-31] MEDS ORDERED: ONDANSETRON 4 MG/2 ML VIAL ONE (12:55)
[2022-07-31 13:08] LABS: Bilirubin Total 0.4 mg/dL (0.2-1.0); Potassium 3.7 mEq/L (3.5-5.1); Protein, Total 7.7 g/dL (6.4-8.2)
--- NOTE | 2022-07-31 13:41 | RAD REPORT ---
EXAM DESCRIPTION: CTAbdomen Pelvis W Contrast - 07/31/2022 1:33 pm CLINICAL HISTORY: Abdominal pain. abnormal non contrast ct COMPARISON: Abdomen Pelvis W Contrast dated 11/09/2020 TECHNIQUE: Biphasic CT imaging of the abdomen and pelvis was performed with 100 ml non-ionic IV cont rast. 10 minutes delayed sequence also performed. All CT scans are performed using dose optimization technique as appropriate and may include automated exposure control or mA/KV adjustment according to patient size. FINDINGS: The lung bases are clear. Mild fatty liver. No aggressive liver lesion or biliary dilatation. Small hiatal hernia. The spleen, pancreas, adrenal glands and left kidney are normal. Solid mass measuring 23 x 20 mm projects from the inferolateral aspect of the right kidney likely a r enal cell carcinoma. No bowel obstruction, free air, free fluid or abscess. Lruh-aj-ihfgcmie stool present throughout the colon. The appendix is normal. No evidence of significant lymphadenopathy. No suspicious bony findings. IMPRESSION: 23 x 20 mm solid mass projects of the inferolateral right kidney likely renal cell carci noma.
[2022-07-31] MEDS ORDERED: DIAZEPAM 10 MG/2 ML INJ SYRINGE ONE (14:15)
--- NOTE | 2022-07-31 15:16 | ER ---
Nurse's Notes [facility] Name: Chilo Sher Jr Age: 51 yrs Sex: Male : 1970 Arrival Date: 07/31/2022 Time: 11:51 Bed 12 Private MD: Diagnosis: Renal mass;Strain of muscle, fascia and tendon of lower back Presentation: 07/31 12:13 Chief complaint: Patient states: Low back pain since after cleaning the tub nj1 that has gotten worse, has taken OTC meds with no relief. Unsure if lower abdomen is hurting due to back pain. Coronavirus screen: Vaccine status: Patient reports receiving the 2nd dose of the covid vaccine. Ebola Screen: Patient denies travel to an Ebola-affected area in the 21 days before illness onset. Initial Sepsis Screen: Does the patient meet any 2 criteria? No. Patient's initial sepsis screen is negative. Does the patient have a suspected source of infection? No. Patient's initial sepsis screen is negative. Risk Assessment: Do you want to hurt yourself or someone else? Patient reports no desire to harm self or others. Onset of symptoms was July 26, 2022. 12:13 Method Of Arrival: Ambulatory [facility] 12:13 Acuity: INEZ 3 nj1 Historical: - Allergies: 12:15 No Known Allergies; nj1 - PMHx: 12:15 None; nj1 - PSHx: 12:15 None; nj1 - Immunization history:: Client reports receiving the 2nd dose of the Covid vaccine. - Social history:: Smoking status: Patient denies any tobacco usage or history of. Screenin:00 [facility] ED Fall Risk Assessment (Adult) History of falling in the last 3 months, iw including since admission No falls in past 3 months (0 pts) Confusion or Disorientation No (0 pts) Intoxicated or Sedated No (0 pts) Impaired Gait No (0 pts) Mobility Assist Device Used No (0 pt) Altered Elimination No (0 pt) Score/Fall Risk Level 0 - 2 = Low Risk Oriented to surroundings, Maintained a safe environment, Educated pt \T\ family on fall prevention, incl call for assistance when getting out of bed, Assessed \T\ reinforced patient's understanding of fall precautions, Provided non-skid footwear, Hourly rounding (assess needs \T\ fall precautionary measures) done, Used ambulatory aids as needed (educated on \T\ assisted with), Used gait belt as appropriate. Abuse screen: Denies threats or abuse. Denies injuries from another. Nutritional screening: No deficits noted. Tuberculosis screening: No symptoms or risk factors identified. Assessment: 13:00 General: Appears in no apparent distress. uncomfortable, Behavior is calm, cooperative, iw appropriate for age. Pain: Complains of pain in abdomen. Neuro: No deficits noted. Cardiovascular: No deficits noted. Respiratory: No deficits noted. GI: Bowel sounds present X 4 quads. Abd is soft X 4 quads. : No deficits noted. EENT: No deficits noted. Derm: No deficits noted. Musculoskeletal: No deficits noted. Vital Signs: 12:13 BP 140 / 78; Pulse 90; Resp 18; Temp 97.7; Pulse Ox 100% ; Weight 89.36 kg; Height 5 nj1 ft. 8 in. ; Pain 10/10; 15:17 BP 132 / 68; Pulse 82; Resp 17; Pulse Ox 99% ; iw 12:13 Body Mass Index 29.95 (89.36 kg, 172.72 cm) nj1 12:13 Pain Scale: Adult nj1 ED Course: 11:52 Patient arrived in ED. am2 11:57 Carlo Butler PA is PHCP. jmm 11:57 Roderick Hendrickson DO is Attending Physician. jmm 12:15 Triage completed. nj1 12:16 Arm band placed on right wrist. nj1 12:26 CT Stone Protocol In Process Unspecified. EDMS 12:26 Sabi Figueroa, RN is Primary Nurse. ap3 12:58 Inserted saline lock: 20 gauge in right antecubital area, using aseptic technique. rs5 Blood collected. 12:58 Lipase Sent. rs5 12:58 CMP Sent. rs5 13:00 Patient has correct armband on for positive identification. Bed in low position. Call iw light in reach. Pulse ox on. NIBP on. Door closed. Noise minimized. Lights dimmed. Warm blanket given. 13:00 No provider procedures requiring assistance completed. iw 13:35 CT Abd/Pelvis - IV Contrast Only In Process Unspecified. EDMS 15:17 IV discontinued, intact, bleeding controlled, No redness/swelling at site. Pressure iw dressing applied. Administered Medications: 12:55 Drug: Ketorolac IVP 30 mg Route: IVP; Site: right antecubital; nj1 12:55 Drug: morphine IVP or IV 4 mg Route: IVP; Infused Over: 4 mins; Site: right antecubital;nj1 12:55 Drug: Ondansetron IVP 4 mg Route: IVP; Site: right antecubital; nj1 14:11 Drug: Diazepam IVP 5 mg Route: IVP; Site: right antecubital; ko1 Medication: 13:00 VIS not applicable for this client. iw Outcome: 15:15 Discharge ordered by . janina 15:17 Discharged to home ambulatory. iw 15:17 Condition: improved 15:17 Discharge instructions given to patient, Instructed on discharge instructions, follow up and referral plans. medication usage, Demonstrated understanding of instructions, follow-up care, medications, Prescriptions given X 2. 15:26 Patient left the ED. iw Signatures: Dispatcher [employer] EDMS Carlo Butler PA PA jmm Williams, Irene, RN RN iw Sabi Mcgovern amSabi Donald RN RN ap3 Bethany Hernandes RN RN ko1 Josias Butler rs5 Linn Santos RN RN nj1
--- NOTE | 2022-07-31 15:16 | EDPHYS ---
Physician Documentation [facility] Name: Chilo Sher Jr Age: 51 yrs Sex: Male : 1970 Arrival Date: 07/31/2022 Time: 11:51 Bed 12 Private MD: ED Physician Roderick Hendrickson HPI: 07/31 12:05 This 51 yrs old Male presents to ER via Ambulatory with complaints of Low Back jmm Pain, Abdominal Pain - low. 12:05 The patient presents with pain that is acute. The symptoms are located in the low back. jmm The pain does not radiate. The problem was sustained when bending over. Onset: The symptoms/episode began/occurred acutely, 3 day(s) ago. Is a 51-year-old male with no chronic medical conditions that presents emerged part with complaints of low back pain. Symptoms began after he was bending over cleaning a bathtub. Patient states he felt improved when he sat up. Patient also complains of abdominal fullness. Denies fever, vomiting, numbness.. Historical: - Allergies: 12:15 No Known Allergies; nj1 - PMHx: 12:15 None; nj1 - PSHx: 12:15 None; nj1 - Immunization history:: Client reports receiving the 2nd dose of the Covid vaccine. - Social history:: Smoking status: Patient denies any tobacco usage or history of. ROS: 12:05 Constitutional: Negative for fever, chills, and weight loss, Cardiovascular: Negative jmm for chest pain, palpitations, and edema, Respiratory: Negative for shortness of breath, cough, wheezing, and pleuritic chest pain. 12:05 Back: Positive for pain with movement. 12:05 All other systems are negative. Exam: 12:05 Constitutional: This is a well developed, well nourished patient who is awake, alert, jmm and in no acute distress. Head/Face: atraumatic. Eyes: EOMI, no conjunctival erythema appreciated ENT: Moist Mucus Membranes Neck: Trachea midline, Supple Chest/axilla: Normal chest wall appearance and motion. Cardiovascular: Regular rate and rhythm. No edema appreciated Respiratory: Normal respirations, no respiratory distress appreciated Abdomen/GI: Non distended 12:05 Back: Low back pain on palpation. 12:05 Musculoskeletal/extremity: ROM: intact in all extremities. 12:05 Skin: Appearance: Color: normal in color. 12:05 Neuro: Motor: is normal. 12:05 Psych: Behavior/mood is pleasant, cooperative. Vital Signs: 12:13 BP 140 / 78; Pulse 90; Resp 18; Temp 97.7; Pulse Ox 100% ; Weight 89.36 kg; Height 5 nj1 ft. 8 in. ; Pain 10/10; 15:17 BP 132 / 68; Pulse 82; Resp 17; Pulse Ox 99% ; iw 12:13 Body Mass Index 29.95 (89.36 kg, 172.72 cm) [facility] 12:13 Pain Scale: Adult [facility] MDM: 12:05 Patient medically screened. [facility] 15:13 Differential diagnosis: strain, fracture. Data reviewed: vital signs, nurses notes, lab [facility] test result(s), radiologic studies, CT scan. Consideration of Admission/Observation Escalation of care including admission/observation considered. I considered the following discharge prescriptions or medication management in the emergency department Medications were administered in the Emergency Department. See MAR. Counseling: I had a detailed discussion with the patient and/or guardian regarding: the historical points, exam findings, and any diagnostic results supporting the discharge/admit diagnosis, radiology results, the need for outpatient follow up, to return to the emergency department if symptoms worsen or persist or if there are any questions or concerns that arise at home. 07/31 12:13 Order name: CBC with Diff; Complete Time: 12:54 [facility] 07/31 12:13 Order name: CMP; Complete Time: 13:10 [facility] 07/31 12:13 Order name: Lipase; Complete Time: 13:10 [facility] 07/31 12:14 Order name: CT Stone Protocol; Complete Time: 12:54 [facility] 07/31 12:58 Order name: CT Abd/Pelvis - IV Contrast Only; Complete Time: 13:43 [facility] 07/31 12:13 Order name: Saline Lock; Complete Time: 12:58 [facility] 07/31 12:13 Order name: Labs collected and sent; Complete Time: 12:58 [facility] Administered Medications: 12:55 Drug: Ketorolac IVP 30 mg Route: IVP; Site: right antecubital; nj1 12:55 Drug: morphine IVP or IV 4 mg Route: IVP; Infused Over: 4 mins; Site: right antecubital;nj1 12:55 Drug: Ondansetron IVP 4 mg Route: IVP; Site: right antecubital; nj1 14:11 Drug: Diazepam IVP 5 mg Route: IVP; Site: right antecubital; ko1 Disposition: 15:41 Co-signature as Attending Physician, Roderick Hendrickson DO I was immediately available on-site ms3 in the Emergency Department for consultation in the care of the patient. Disposition Summary: 07/31/22 15:15 Discharge Ordered Location: Home [facility] Condition: Stable jmm Diagnosis - Renal mass jmm - Strain of muscle, fascia and tendon of lower back jm Followup: m - With: Private Physician - When: 2 - 3 days - Reason: Recheck today's complaints, Continuance of care, Re-evaluation by your physician Discharge Instructions: - Discharge Summary Sheet [facility] - Low Back Sprain or Strain Rehab [facility] Forms: - Medication Reconciliation Form [facility] - Thank You Letter [facility] - Antibiotic Education [facility] - Prescription Opioid Use [facility] Prescriptions: - Valium 5 mg Oral Tablet - take 1 tablet by ORAL route every 8 hours As needed; 20 tablet; Refills: 0, [facility] Product Selection Permitted - Diclofenac Sodium 75 mg Oral Tablet Sustained Release - take 1 tablet by ORAL route 2 times per day; 30 tablet; Refills: 0, Product [facility] Selection Permitted Signatures: Dispatcher [employer] Carlo Hewitt PA PA jmm Sims, Marcus, DO DO ms3 Bethany Hernandes, RN RN ko1 Linn Santos RN RN nj1
[2022-07-31 15:45] VITALS: TEMP 97.7
[2022-07-31 15:48] VITALS: BP 132/68; O2SAT 99
== END 2022-07-31 15:26 | disposition home or self-care (01) ==
LOC: ER 11:51
DX: S39.012A Strain of muscle, fascia and tendon of lower back, initial encounter (principal); N28.89 Other specified disorders of kidney and ureter
CPT/HCPCS: 36415; 74176; 74177; 76377; 80053; 83690; 85025; 96374; 96375; 99284; J2405; J3360; Q9967

== ENCOUNTER 2023-01-28 09:12 | Emergency (ER) | payer OTHER ==
--- OUTSIDE RECORDS SUMMARY | 2023-01-28 09:15 | XMS REPORT | Clinical Summary ---
:1970 Author Organization [facility] MD [facility] Address [address] [place] [id number] Care Team Providers Name Role Phone Ad Sahni MD Unavailable Allergies Not on File Medications Not on file Active Problems Not on file Encounters Date Type Department Care Team Description 08/02/2022 Travel after 01/28/2022 Social History Tobacco Use Types Packs/Day Years Used Date Smoking Tobacco: Never Assessed Sex and Gender Information Value Date Recorded Sex Assigned at Not on file Gender Identity Not on file Sexual Orientation Not on file Job Start Date Occupation Industry Not on file Not on file Not on file Last Filed Vital Signs Not on file Plan of Treatment Not on file Results Not on fileafter 01/28/2022 Care Teams Ice Cream Vendor Relationship Specialty Start Date End Date Ad Sahni, PCP - External Primary Care Family Practice 08/02/22 Provider [address] [place] [address]
--- OUTSIDE RECORDS SUMMARY | 2023-01-28 09:17 | XMS REPORT | Continuity of Care Document ---
:1970 Author Organization [facility] t Address [address] [facility] [address] [place] [address] Care Team Providers Name Role Phone Navya Christina Primary Care Physician [phone] BRENDEN MCGOWAN Attending Clinician Unavailable JIMMIE VALENTINO Attending Clinician Unavailable Macey Attending Clinician Unavailable MD MIKY Attending Clinician Unavailable Bobby Donaldson MD Attending Clinician BOBBY DONALDSON Attending Clinician Unavailable Lakeisha HORNER, Valentin Menjivar Attending Clinician Maegan Alfredo MD Attending Clinician CRISTI SMITH Attending Clinician Unavailable Nathan Attending Clinician Unavailable Macey Admitting Clinician Unavailable BOBBY DONALDSON Admitting Clinician Unavailable Nathan Admitting Clinician Unavailable Payers Payer Name Policy Type Policy Number Effective Date Expiration Date Renard olmos BRANT MERCADO [employer]S GOLD 9 [id number] 2022 [facility] ON 00:00:00 [facility] [id number] ([facility]) Problems Condition Condition Condition Status Onset Resolution Last Treating Co mments Source Name Details Category Date Date Treatment Clinician Date Right Right Disease Active [facility] mass renal mass 11-15 Suzanne kes 00:00: Medical 00 Center Allergies, Adverse Reactions, Alerts Allergy Allergy Status Severity Reaction(s) Onset Inactive Treating Comm ents Source Name Type Date Date Clinician NO KNOWN Allergy Active [facility] ALLERGIE [facility] Social History Social Habit Start Date Stop Date Quantity Comments Source Sexual orientation [place] History of tobacco Current smoker [facility] use [facility] Gender identity Karla Max ybold - External Alcohol intake 2022-11-15 2022-11-15 Current drinker [facility] 00:00:00 00:00:00 alcohol (finding) [facility] History of Social 2022-11-15 2022-11-[address] [facility] function 00:00:00 00:00:00 [facility] Tobacco use and 2022-11-14 2022-11-14 Smokeless tobacco [facility] exposure 00:00:00 00:00:00 non-user [facility] Tobacco Comment 2022-11-14 2022-11-14 Only smoked [facility] 00:00:00 00:00:[address] [facility] ter socially Alcohol Comment 2022-11-14 2022-11-[address] [facility] 00:00:00 00:00:00 [facility] Sex Ass[birth year] [facility] 00[facility] 00:00:00 [facility] A[facility] Smoking Status Start Date Stop Date Source Ex-smoker 2022-11-14 00:00:00 2022-11-14 00:00:00 [facility] Never smoked tobacco Karla Druon old - External Medications Ordered Filled Start Stop Current Ordering Indication Dosage Frequency Signature Comments Components Source Medication Medication Date Date Medication? Clinician (SIG) Name Name Missing or Yes QD daily [facility] Non-Formula 9-02 Black seed Suzanne kes ry 16:17: oil. Medical Medication 23 Center thiamine Yes 100mg QD Take [address] [facility] 100 MG 9-02 tablet [facility] tablet 16:17: (100 mg Medical 23 total) by Center mouth daily. ascorbic Yes QD Take by [facility] acid 9-02 mouth [facility] (VITAMIN C 16:17: daily. Medic al ORAL) 23 Center Missing or Yes QD daily [facility] Non-Formula 9-02 Haritaki Luke s ry 16:17: supplement Medical Medication 23 . Center polyethylen 2022- No 17g Take [address] [facility] e glycol 11-17 by mouth [facility] (GLYCOLAX) 00:00: 23:59 daily as Me dical 17 gram 00 :00 needed Center packet (Constipat ion) for up to 14 days. docusate 2022- No 100mg Q.5D Take 1 [facility] t sodium 11-17 capsule [facility] (COLACE) 00:00: 23:59 (100 mg Medic al 100 MG 00 :00 total) by Center capsule mouth 2 (two) times daily for 10 days. traMADoL 2022- No 50mg Take [address] [facility] (ULTRAM) 50 11-17 tablet (50 L ukes mg tablet 00:00: 23:59 mg total) Me dical 00 :00 by mouth Center every 6 (six) hours as needed for up to 10 days. Max Daily Amount: 200 mg HYDROcodone Yes [id number] 1{tbl} Take 1 Karla -Acetaminop 7-31 tablet by Sekailey magallon hen (NORCO) 00:00: mouth - 5-325 MG 00 every 6 to Exter na oral Tablet 8 hours as l needed for pain diazePAM 5 2022- No 5mg Q.[id number] Take 1 Karla MG oral 5-16 - [id number] tablet (5 Seybold Tablet 00:00: 00:00 3D mg total) - 00 :00 by mouth Externa every 8 l hours as needed Diclofenac 2022- No 75mg Take 1 Meghan ey Sodium 75 -30 09- tablet (75 Sey bold MG oral 00:00: 00:00 mg total) - Tablet 00 :00 by mouth 2 Externa Delayed times l Response daily TAKE ONE No 4 (1) 8-06 TABLET(S) 00:00: BY MOUTH 00 EVERY SIX HOURS NEEDED. TAKE ONE No 20 (1) 8-06 TABLET(S) 00:00: BY MOUTH 00 EVERY SIX HOURS NEEDED. ibuprofen No 1mg 800 mg 6-26 tablet 00:00: 00 omeprazole 2018-03 No 1mg 20 mg 1-18 capsule,del 00:00: ayed 00 release loratadine 2018- No 1mg 10 mg 1-18 tablet 00:00: 00 naproxen 2016- No 1mg 500 mg 2-04 tablet 00:00: 00 prednisone 2016- No mg 20 mg 2-04 tablet 00:00: 00 cyclobenzap 2016- No 1mg rine 10 mg 2-04 tablet 00:00: 00 gabapentin 2016- No 1mg 300 mg 2-04 capsule 00:00: 00 gentamicin 2017-0 No 3% 0.3 % eye 7-13 drops 00:00: 00 ranitidine 2016-0 No 1mg 150 mg 7-13 tablet 00:00: 00 Vital Signs Vital Name Observation Time Observation Value Comments Source HEIGHT 2022-11-15 11:01:00 172.7 cm WEIGHT 2022-11-15 11:01:00 80.1 kg HEIGHT 2022-11-14 10:00:00 172.7 cm WEIGHT 2022-11-14 10:00:00 81.647 kg HEIGHT 2022-11-15 11:01:00 172.7 cm WEIGHT 2022-11-15 11:01:00 80.1 kg HEIGHT 2022-11-14 10:00:00 172.7 cm WEIGHT 2022-11-14 10:00:00 81.647 kg HEIGHT 2022-11-15 11:01:00 172.7 cm WEIGHT 2022-11-15 11:01:00 80.1 kg HEIGHT 2022-11-14 10:00:00 172.7 cm WEIGHT 2022-11-14 10:00:00 81.647 kg Systolic blood 2022-10-15 21:02:00 103 mm[Hg] Karla Lo - pressure External Diastolic blood 2022-10-15 21:02:00 57 mm[Hg] Alison bonner Seybangeline - pressure External Heart rate 2022-10-15 21:02:00 61 /min Karla eller - External Body temperature 2022-10-15 21:02:00 36.44 Sunshine Meghan Lo - External Respiratory rate 2022-10-15 21:02:00 20 /min Meghan Lo - External Body height 2022-10-15 21:02:00 172.7 cm Karla eller - External Body weight 2022-10-15 21:02:00 84.732 kg Karla Glynn [facility] - External BMI 2022-10-15 21:02:00 28.40 kg/m2 Karla rojo - External Heart rate 2022-11-17 12:58:18 84 /min [facility] Respiratory rate 2022-11-17 12:58:18 18 /min [place] Oxygen saturation in 2022-11-17 12:58:18 97 /min [facility] Arterial blood by Medical Ce nter Pulse oximetry Body temperature 2022-11-17 12:58:05 36.67 Sunshine [place] Systolic blood 2022-11-17 12:57:30 136 mm[Hg] [facility] Diastolic blood 2022-11-17 12:57:30 75 mm[Hg] [facility] Body height 2022-11-15 11:01:00 172.7 cm [facility] Body weight 2022-11-15 11:01:00 80.1 kg [facility] BMI 2022-11-15 11:01:00 26.85 kg/m2 [facility] BP Systolic 2021-10-21 09:39:00 125 mm[Hg] BP [...] Respiratory Rate 2016-03-08 16:50:00 18.00 /min Procedures Procedure Date / Time Performed Performing Clinician Sourc e CBC W/PLT COUNT & AUTO 2022-11-17 04:07[facility]OL[facility] 2022-11-17 04:07:00 [facility] 2022-11-17 04:07[facility]00 [facility] 2022-11-17 04:07:00 [facility] CBC W/PLT COUNT & AUTO 2022-11-17 04:07:00 [facility] LEUKO-REDUCED 2022-11-16 23:55:00 [facility] RBC [facility] CREATININE, RANDOM URINE 2022-11-16 17:30:00 Heavenly Alcocer [place] CBC W/PLT COUNT & AUTO 2022-11-16 03:38:00 Lorri, [facility] BASIC METABOLIC PANEL 2022-11-16 03:38:00 [place], [facility] MAGNESIUM 2022-11-16 03:38[facility] 2022-11-16 03:38[facility] W/[facility]T COUNT & AUTO 2022-11-16 03:38:00 [facility] CBC W/PLT COUNT & AUTO 2022-11-15 20:37:00 Lorri, [facility] BASIC METABOLIC PANEL 2022-11-15 20:37:00 [facility] W/[facility]T [facility] & AUTO 2022-11-15 20:37:00 [facility] TISSUE EXAM 2022-11-15 19:14:00 Bobby Donaldson [facility] TRANSFUSE LEUKO-REDUCED 2022-11-15 18:38:00 Deysi Yañez I [facility] RED BLOOD CELLS [facility] CALCIUM, IONIZED 2022-11-15 18:16:31 Bobby Donaldson [facility] RRL CRITICAL LABS 2022-11-15 18:16:28 Bobby Donaldson [facility] ukes (ABG,NA,K,H&H,GLUCOSE) Medical C enter BLOOD GAS, ARTERIAL 2022-11-15 18:16:28 Bobby Donaldson [place] SODIUM NA-STAT LAB 2022-11-15 18:16:28 Bobby Donaldson [place] POTASSIUM-STAT LAB 2022-11-15 18:16:28 Bobby Donaldson [place] GLUCOSE-STAT LAB 2022-11-15 18:16:28 Mendoza [facility] HGB/HCT (H&H) - STAT LAB 2022-11-15 18:16:28 Bobby Donaldson [facility] CALCIUM, IONIZED 2022-11-15 15:09:20 Bobby Donaldson [facility] RRL CRITICAL LABS 2022-11-15 15:09:00 Bobby Donaldson [facility] ukes (ABG,NA,K,H&H,GLUCOSE) Medical C enter BLOOD GAS, ARTERIAL 2022-11-15 15:09:00 Bobby Donaldson [place] SODIUM NA-STAT LAB 2022-11-15 15:09:00 Bobby Donaldson [place] POTASSIUM-STAT LAB 2022-11-15 15:09:00 Mendoza Bobby B [place] GLUCOSE-STAT LAB 2022-11-15 15:09:00 Bobby Donaldson [facility] HGB/HCT (H&H) - STAT LAB 2022-11-15 15:09:00 Bobby Donaldson [facility] ABORH, MANUAL 2022-11-15 15:04:00 Thuy Gomez [place] ROBOTIC 2022-11-15 14:08:00 Bobby Donaldson [facility] LAPAROSCOPY,NEPHRECTOMY- [facility] PARTIAL PROCEDURE W/ DAVINCI XI 2022-11-15 14:08:00 Bobby Donaldson [facility] TYPE AND SCREEN, 2022-11-15 10:56:[address] Suzanne kes [facility] Plan of Care Planned Activity Planned Date Details Comments Source Future Scheduled 2023-11-[address] [facility] Test 00:00:00 Counseling and Screening [facility] (12+) [code = Tobacco Cessation Counseling and Screening (12+)] Future Scheduled 2022-11-16 Influenza Vaccine (#1) [facility] 00:00:00 [code = Influenza Vaccine Me dical Center (#1)] Future Scheduled 2022-03-[address] [facility] Test 00:00:00 (12+) [code = DEPRESSION [facility] SCREENING (12+)] Future Scheduled 2019-08-20 Screening for malignant [facility] Test 00:00:00 neoplasm of lung Medical Lynnette ter (procedure) [code = 323503745] Future Scheduled 2019-08-20 SHINGLES VACCINES ([address] [facility] Test 00:00:00 2) [code = SHINGLES [facility] VACCINES (1 of 2)] Future Scheduled 2004 Lipid panel (procedure) [facility] Test 00:00:00 [code = 77287488] Medical Ce nter Future Scheduled 1988 DTAP/TDAP/TD VACCINES ([address] [facility] Test 00:00:00 - Tdap) [code = Medical Cent er DTAP/TDAP/TD VACCINES (1 - Tdap)] Future Scheduled 1987-08-20 HEPATITIS C SCRE[facility]ING [facility] Test 00:00:00 [code = HEPATITIS C Medical Center SCREENING] Future Scheduled [address] [facility] Test 00:00:00 virus screening Medical Cent er (procedure) [code = 636499370] Future Scheduled 1970-02-18 COVID-19 VACCINE (#1) [facility] Test 00:00:00 [code = COVID-19 VACCINE Med ica Center (#1)] Future Scheduled 1969 CT Colonography (combo) [facility] Test 00:00:00 [code = CT Colonography [facility] (combo)] Future Scheduled 1970 Screening for malignant [facility] Test 00:00:00 neoplasm of colon Medical Ce nter (procedure) [code = 870984988] Future Scheduled 1969 Screening for malignant [facility] Test 00:00:00 neoplasm of colon Medical Ce nter (procedure) [code = 337620212] Future Scheduled 1969 Screening for malignant [facility] Test 00:00:00 neoplasm of colon Medical Ce nter (procedure) [code = 332340723] Future Scheduled 1969 Screening for malignant [facility] Test 00:00:00 neoplasm of colon Medical Ce nter (procedure) [code = 504063059] Future Scheduled 1970 Sigmoidoscopy [code = [facility] Test 00:00:00 Sigmoidoscopy] Medical Emersone r Goal Plan of Care Note [code = 82569-8] Goal Plan of Care Note [code = 80913-8] Goal Plan of Care Note [code = 96523-0] Goal Plan of Care Note [code = 30309-7] Goal Plan of Care Note [code = 87186-7] Goal Plan of Care Note [code = 10354-5] Goal Plan of Care Note [code = 15037-4] Goal Plan of Care Note [code = 76030-8] Goal Plan of Care Note [code = 86442-0] Goal Plan of Care Note [code = 60847-4] Goal Plan of Care Note [code = 66746-7] Goal Plan of Care Note [code = 58484-1] Goal Plan of Care Note [code = 49672-4] Goal Plan of Care Note [code = 23777-3] Goal Plan of Care Note [code = 86415-6] Goal Plan of Care Note [code = 00472-2] Goal Plan of Care Note [code = 88084-5] Goal Plan of Care Note [code = 07568-3] Goal Plan of Care Note [code = 28244-0] Goal Plan of Care Note [code = 19828-5] Goal Plan of Care Note [code = 08429-5] Goal Plan of Care Note [code = 87190-2] Encounters Start End Encounter Admission Attending Care Care Encounter Source Date/Time Date/Time Type Type Clinicians Facility Department ID 2022-12-12 Outpatient [facility] [id number] Common 09:49:00 [id number] [facility] 2022-11-29 Outpatient [facility] [id number] Common 13:01:00 [id number] [facility] 2022-11-08 Outpatient [facility] [id number] Common 16:53:01 [id number] [facility] 2023-03-27 2023-03-27 Outpatient ELIANTOOKARLA [id number] Karla 08:30:00 08:30:00 BRENDEN Seybol d 2023-01-25 2023-01-25 Outpatient KARLA VALENTINO [id number] Karla 14:30:00 14:30:00 JIMMIE Seybol d 2023-01-14 2023-01-14 Outpatient KARLA VALENTINO [id number] Karla 15:30:00 15:30:00 JIMMIE Seybol d 2022-12-31 2022-12-31 Outpatient KARLA VALENTINO [id number] Karla 15:00:00 15:00:00 JIMMIE Seybol d 2022-12-18 2022-12-18 Outpatient KARLA VALENTINO [id number] Karla 00:00:00 00:00:00 JIMMIE Seybol d 2022-12-14 2022-12-14 Outpatient KARLA RICKETTS [id number] Karla 00:00:00 00:00:00 Seybol d 2022-12-06 2022-12-06 Outpatient Arceneaux_C VFP VFP [id number] Village 00:00:00 00:00:00 _ISA [id number] Family Practic e 2022-11-30 2022-11-30 Outpatient HOMERO RICKETTS [id number] Karla 00:00:00 00:00:00 MD MAGGY Seybol d 2022-11-29 2022-11-29 Outpatient KARLA VALENTINO [id number] Karla 00:00:00 00:00:00 JIMMIE Seybol d 2022-11-20 2022-11-20 Outpatient KARLA VALENTINO [id number] Karla 00:00:00 00:00:00 JIMMIE Seybol d 2022-11-15 2022-11-17 [facility] [id number] 10:13:00 16:17:00 Encounter [facility] 2022-11-15 2022-11-17 Outpatient EL MENDOZA, [facility] Surgery [id number] SLE 10:13:00 16:17:00 [place] 2022-11-15 2022-11-15 Anesthesia Valentin Suazo [facility] [id number] [facility] 14:08:00 20:08:00 Event Juni Maegan [facility] 2022-11-15 2022-11-15 Surgery Mendoza [facility] [id number] 13:45:00 19:15:00 [facility] 2022-11-15 2022-11-15 Travel [facility] [id number] [facility] 00:[facility]:00 00:00:00 [facility] 2022-11-14 2022-11-14 Outpatient [facility] [id number] SLE 00:00:00 00:00:00 2022-11-14 2022-11-14 Travel [facility] [id number] [facility] 00:[facility]:00 00:00:00 [facility] 2022-11-05 2022-11-05 Outpatient KARLA SMITH [id number] Karla 15:15:00 15:15:00 CRISTI Seybol d 2022-11-05 2022-11-05 Outpatient KARLA VALENTINO [id number] Karla 00:00:00 00:00:00 JIMMIE Seybol d 2022-10-16 2022-10-16 Outpatient KARLA VALENTINO [id number] Karla 00:00:00 00:00:00 JIMMIE Seybol d 2022-10-15 2022-10-15 Outpatient KARLA VALENTINO [id number] Karla 16:15:00 16:15:00 JIMMIE Seybol d 2022-09-04 2022-09-04 Outpatient SFA SFA [id number] Ad 14:37:51 14:37:51 0620 F Ye 2022-08-24 2022-08-24 Outpatient Shaw_B VFP VFP [id number] [facility] 00:00:00 00:00:00 [id number] Family Practic e 2022-08-24 2022-08-24 Outpatient Shaw_B_HOU_ VFP [facility] [id number] [facility] 00:00:00 00:00:00 [employer] [id number] Family Practic e 2022-08-02 2022-08-02 Travel 1.2.840.1 [id number] [facility] 00:00:00 00:00:00 [id number] 350.1.13.41 ity of 3[place]412.2.[place]3.[place] 084.8 .8 [facility] 2022-08-02 2022-08-02 Travel 1.2.840.1 [id number] [id number] [facility] 00:00:00 00:00:00 [id number] 350.1.13.41 ity of 3.412.2.7 [place]3.[place] .3.374899 084.8 .8 [facility] 2022-08-01 2022-08-[address] [facility] SFA [id number] Ad 17:19:37 17:19:37 [id number] Lexus Belcher 2021-10-21 2021-10-21 Outpatient [id number] 00:00:00 00:00:00 Visit q1f9-7cxb 2m2-7lta-e -nm47-g7g v00-l3w12k 36jao807f lt330p Results Test Description Test Time Test Comments Results Result Comments Source Tissue Exam 2022-12-06 16:34:01 Test Item Value Reference Range Interpretation Comme nts Case Report (test code = 104) Surgical Pathology Report Case: [id number] Authorizing Provider: Bobby Donaldson MD Collected: 11/15/2022 07:14 PM Ordering Location: [facility] PERIOPERATIVE Received: 11/16/2022 12:42 PM SERVICES Pathologist: Tamara Augustin MD Specimen: Renal, Right, Right renal mass DIAGNOSIS (test code = 3220) c6sojYRhBMXfe9gcNGXnkFRgThQvNnKhMcFaMm pc sCPvQIggewTwKNmtrYjdGJBvJDpdKV6gcMzwlUe8 eCiqTQTalfU4dEJeUHwyu6fdZGK8u1xptvbuOQJa CVanXg8kdSUcmXxiQfVtVUPoNHv2uS36UFTiqZ1a rKNrRSg1YDMkqKYgmpDvLuOxAYPhvNCbmGR3GQQb IV4tzpfoJViiLKfzZAQyyeI8RKOexWKsI0QqFKBl AH0twxxwSBB2IQjeAHBaNQG4PdFgBFHlb0Wgzlz7 XbWpbQHcZFytqBRnxzrrjmWnMUrXOD8ROLyyPtuI OHPdYSNTKwQOIZgyQtWOTTHDA7UINId6UQRpref8 YOZbMKPNQCTRMjLPORwZYHTLAuQHLILJCXjbU4XY X6mBW75PWMLXEK2fXZUBQZKKXfSVRBHnJFSvhfv8 HOHhXCRCIC3JGsTGTOgIVpRfVeYcT40xJMmEPNLH JJJRIEvOK2XZXELWVDVRM9pXTvowpCVtVZPqUoWh OHKJVL2MZXsCVQwYOHOkBA0wU1zSOfYWXACgvuv2 FCGvWRUVYeTUUHNXG72QGJ9KTAQDAXRNRHMGPoDS IUAZXVeBKWVRQOKtpzw9AMIcQTTBJzBPFCDGMA2U XAFQCIJRKRRSHiXCHZXZQJrZBKFVMPLyjga7RQNe EYLVArOUGI9JQB8CQWSVDOjTBrOXXtEJE5oLZpAH TZOYLTyXRZRSOTClves8DPQsEKRTGX1IEPLNDLMW XaMFDP4CHUZNSAVFZXSHRTEYNUWOBN9vRK6GMMCA TeKcBp3JBWLCKQ9VWSQjidr4XYXrNLVOL65jWnJF IDwVW8IKPpXBQMDWDNhtZ7nUELRAEN1HIQXiY6rQ MWOFQhDsHmBGNFTNX6cQFk8FFOEfZ3lQGUTJDDcS TTLxuedoLJJ7d0ckcHXiXJHgfXSeLHYjVBcmzjZl IDPjNbdjkuhnMYKeZPP6vsAzCMTyTQgsHBBzGTcg Lr6wlQObsSkaLaJhSMAxv3porvCWnvsrpNl0r5jq UQAxHqW4sAEpUOnbK5bholIspDLwCZRkCHd9kL91 TXTkwW4xtSAbJCezacPgBfT4QTloNWIuNvZ6CIXj gJFoVMCuF7ztDJMsGVzvLIBhBJbzsKOzFYD8xUvg r8A6sOSbaKQozBldBuZgXrFmYcKHx8OlMVr2jXgn Q5MuOKEjNzA6lSSjVUGqGLluCRBuFWBvriS2rG21 RKxnhaU1zDQec5Uce20nd968lR1zkVXeWXV2KCQb WXZswAYjJQCtWXV5AFGewTYjC0clRIRuBS2ftrhw EQdrNIqcRUNbuIA1IIRfrTOhH5TrSCYeVPduMKKa ysd8KsGtEv7hnUBujEsdTDkcw0qzk5dbcUQkCtv0 NUEgSbApSnbaVIlhb2Jbd4ozLUFnpo5mEUJ0kXUh iDxov1I2fOKpTHXygDHfYXGiZS7meYSlLIKyeB4b rhdbYDZsXfEnhzlvPVMcfTfibzSgIb3qxSxhKGS5 MIeeD1gvhN5xDoE0RZxcC7gmzC5tRUu8KTwkXYSs xRO8lwC7CORsyAOvI3LpjJ9cBWMlEY4dnih2w2qy CZX9TKilCTJnGkQ5rlB7KLPlyDXlDXIozExcICst o014FWO2MjZfMTWdc4BtK4MpqPxvB72xuWxoS71o LPFvgSaltR2mfXnbjA4fWcUcPwXtAPjfrMoxUS4p NPXtX7aymDPeFJZgWFJyD1umQlXkaG5mdWztJWmf hkDxQAEpNly6OXGtoFXuKDOzEzy3OBBoQBRkK17c pxkqFJP7bZ1of9qno1SrIIznVWM1BXHcq46aZTef cxQ5LOtkMb92IEzpGPQ7PDfxNRO2vZ== SYNOPTIC REPORT (test code = 5765) KIDNEY: NephrectomyKIDNEY: NEPHR ECTOMY, PARTIAL OR RADICAL - All Rokwrrbpv6ih Edition - Protocol posted: 09/14/2020 SPECIMEN Procedure: Partial nephrectomy Specimen Laterality: Right TUMOR Tumor Focality: Unifocal Tumor Size: Greatest Dimension (Centimeters): 2.3 cm 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 Histologic Grade (WHO / ISUP): G1 (nucleoli absent or inconspicuous and basophilic at 400x magnification) Tumor Extent: Limited to kidney Sarcomatoid Features: Not identified Rhabdoid Features: Not identified Tumor Necrosis: Not identified Lymphovascular Invasion: Not identified MARGINS Margin Status: Invasive carcinoma present at margin Margin(s) Involved by Invasive Carcinoma: Renal parenchymal REGIONAL LYMPH NODES Regional Lymph Node Status: Not applicable (no regional lymph nodes submitted or found) PATHOLOGIC STAGE CLASSIFICATION (pTNM, AJCC 8th Edition) Reporting of pT, pN, and (when applicable) pM categories is based on information available to the pathologist at the time the report is issued. As per the AJCC (Chapter 1, 8th Ed.) it is the managing physician s responsibility to establish the final pathologic stage based upon all pertinent information, including but potentially not limited to this pathology report. Primary Tumor (pT): pT1a Regional Lymph Nodes (pN): pN not assigned (no nodes submitted or found) ADDITIONAL FINDINGS Additional Findings in Nonneoplastic Kidney: RARE SCLEROTIC GLOMERULI Additional Findings: Cyst(s): SIMPLE CORTICAL CYST CPT Code(s) (test code = 3357) m5hvlETuYIUxmJTcVPJlB9zlmnHuTAAbtGHb Z3Bh gprvFMxlRO0hOP0wdQmcoEMhfJTqQQNdCaQwu6xy y712rDPjl2adRBHKsygwfEz8kNcqS28hb2G0Fypg P56xtSZkTBT1JEYsRESccEZnAXFmIQX3QMWkgAMd H7qjRSLxFE3evikbDDlrTFwvGEPweII6AYSurRBe H4NrXOQlQVqbPUVyxxw0FsJmTy8yyZEbzNbjRNit YXJkXHBsYWluXGZzMjAgODgzMDcgXHBhcn0= CLINICAL HISTORY (test code = 3356) g5infSZyISXdqBTaAJRlW5jdpbXoHZZ xrQKpB4Yt yctrLKxrUS6vMP1mrGobwKDcxPSdESMhOwXkt3mw i121wDOgy3syBOOOhvrowOn5wVttC73ti2Q6Kqkm U93ihVCeJLM0LTVySUXdfFWeMJNhNWA3EPBiqRKx X0gxEZMbPB4yeaeuAGfzCRnqDBPgoBD8FTIyyIBh D2TqAMYnDEkkMHYllvh7AsVzFt2soZBonGhdPIwj YXJkXHBsYWluXGZzMjAgUmlnaHQgcmVuYWwgbWFz n1rtBFX8 GROSS DESCRIPTION (test code = c9kqnILiHTIfzKFFFEHjECRjSD3zyDbjbRm1 cGdw [id number]) MBVimxQ5gODbPKiwe1keRFU6c9vddrDGOflqNYBu MI1vKPskQWJxFE3vXpRuDPHiAmVfCIDqjUAuwxDr FoVcTPDjtJHywWU6MIDvMR9tlmbgNRiyORltDCSn ktC7LDRisHVrG3RpQMYnUL8otyadSYS9DOMWRgbu Ls5xxDQzdVuoZcGqAmSvDCQgPIQhHEHzyHaaTHPu BWz7hZ5SPhuvUTE9CZFIUykrPsagdIyzw4HbtKOs XHNnIFxcaWQgNTEwMDAgXFxkYiBPVlIgIiAxMjkx HAR6ZqUjNQf6VRefLbTLUUV5EBz9AaAlXEj2JOte HHuagPJpQHRoUYFjKAZkDUfhijB0e7yrPKGtmMXe MYU2HTdbl1zeBTamNEN2BVRfPzWpESHmCH3HOmFe NAZdSFWvUIp4ZoL7IZr4BYPDXjKyFdQoWjIkLPa3 JtyjQRx5PWr5VGfQMcE6AUT7YNluQDXwYCP4CCMw ZVo3QGZeVVoltwUkLUbeIcvrFWdxM72uhJGlQFZL ClxwbGFpblxmczIyIEEuIFJlbmFsLCBSaWdodFxw SPFxAAfpbYPyAULFHmhsbQCgazycmtBkVNi2szCi LUYeqENIRXX2LM2bTOIBIlzkqHNwTGQoqIxrBIjl xT7tMO8XEVCrPiNbTwXwTQi9GMWqHtByz2wbhISu NCmcYAV6dQEwSFRjFFCnZYTgRJ38YJlKMEMghqAi ZSwgbWVkaWNhbCByZWNvcmQgbnVtYmVyIGFuZCAi [file] BSJzmvDUQfmiLGUoFN4VMXRvVxVaNBl6 MICROSCOPIC DESCRIPTION (test code = j5gfzYPxJOXodJZlIIVlD7sorzIbCH [place] [id number]) dmaaPGwuZY4sET6acYqolSHpiDUfODSuLfAfj6kh m940mZCpr8ppDWGBzrqmzEp3zKjlG06ft6H8Ujbk G59vwBOpNQX7VMBbJBMlqJWuGJZsGTW3PFKffPEy P6tnRSGyJQ4ibwfmUExwTKeqPDVyiNZ9KIIyxROd F8XtYANqVZzrNZUxpcg7JoKcWo7ahSJdqPurZFxy PDUhNMToVFtkLQRpYrZoRUOaSc2zgWBxJcwkCAPz zTRfFGikDTQeW3qsPYJiKPHiL7YxfuSeXZXqvEMq zZNqhqBwMAwmChJrDh8qfYXxmL== Gross assessment was performed at (test [facility] enter, code = 2777) Department of Pathology, [address] [place] [id number], Technical component was performed at [facility] er, (test code = 2778) Department of Pathology, [address] [place] [id number], Professional component was performed at [facility] enter, (test code = 2779) Department of Pathology, [address] [place] [id number], [place] [id number] 16:34:01Surgical Pathology Report Case: [id number] Authorizing Provider: Bobby Donaldson MD Collected: 11/15/2022 07:14 PM Ordering Location: [facility] PERIOPERATIVE Received: 11/16/2022 12:42 PM SERVICES Pathologist: Tamara Augustin MD Specimen: Renal, Right, Right renal mass KIDNEY, RIGHT, PARTIAL NEPHRECTOMY: - CLEAR CELL RENAL CELL CARCINOMA, WHO/ISUP GRADE 1 - TUMOR SIZE: 2.3 CM (GREATEST GROSS DIMENSION) - TUMOR LIMITED TO KIDNEY - NO SARCOMATOID FEATURES IDENTIFIED - NO RHABDOID FEATURES IDENTIFIED - NO LYMPHOVASCULAR INVASION IDENTIFIED - RENAL PARENCHYMAL SURGICAL MARGIN POSITIVE FOR TUMOR - NON NEOPLASTIC KIDNEY WITH SIMPLE CYST AND RARE SCLEROTIC GLOMERULI Signing Pathologist Direct Phone Line: [phone] signed by Tamara Augustin MD on 12/06/2022 at 4:33 PMKIDNEY: NephrectomyKIDNEY: NEPHRECTOMY, PARTIAL OR RADICAL - All Ewrqfrdmr1ms Edition - Protocol posted: 09/14/2020PECIMEN Procedure: Partial nephrectomy Specimen Laterality: Right TUMOR Tumor Focality: Unifocal Tumor Size: Greatest Dimension (Centimeters): 2.3 cm 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 Histologic Grade(WHO / ISUP): G1 (nucleoli absent or inconspicuous and basophilic at 400x magnification) Tumor Extent: Limited to kidney Sarcomatoid Features: Not identified Rhabdoid Features: Not identified Tumor Necrosis: Not identified Lymphovascular Invasion: Not identified MARGINS Margin Status: Invasive carcinoma present at margin Margin(s) Involved by Invasive Carcinoma: Renal parenchymal REGIONAL LYMPH NODESRegional Lymph Node Status: Not applicable (no regional lymph nodes submitted or found) PATHOLOGIC STAGE CLASSIFICATION (pTNM, AJCC 8th Edition) Reporting of pT, pN, and (when applicable) pM categoriesis based on information available to the pathologist at the time the report is issued. As per the AJCC (Chapter 1, 8th Ed.) it is the managing physician's responsibility to establish the final pathologic stage based upon all pertinent information, including but potentially not limited to this pathology report. Primary Tumor (pT): pT1a Regional Lymph Nodes (pN): pN not assigned (no nodes submitted or found) ADDITIONAL FINDINGS Additional Findings in Nonneoplastic Kidney: RARE SCLEROTIC GLOMERULI Additional Findings: Cyst(s): SIMPLE CORTICAL CYST 08834 Right renal massA. Renal, RightReceived fresh labeled with the patient's name, medical record number and "renal, right" is a 18 g, 3.5 x 3.5 x 2.5 cmpartial nephrectomy with a small amount of perinephric fat. Also received in the same container is a3.4 x 3 x 0.8 cm separate unoriented piece of adipose tissue.At the parenchymal margin is a 0.3 x 0.2 x 0.1 cm defect. The specimen is serially sectioned to reveal a 2.3 x 2.2 x 2.2 cm red-yellow, atkinson, exophytic, well-circumscribed, and necrotic (25%) mass that abuts the parenchymal margin and inked outer surface. There is a small amount of uninvolved parenchyma that is red and smooth. A gross photograph is taken. The specimen is entirely submitted.Ink code:Blue : parenchymal margin and outer surface of separate piece of adipose tissueBlack: Outer surface of main specimenOrange: Defect, not a true marginSection code:A1-A9: Mass submitted sequentially, defect in [id number]: Uninvolved tigmltrtakJ13-F23: Separate piece of adipose tissue, perpendicular sectionsChelsea JIMBO Rowe, MIKE ([facility])cmPerformed.Slides received December 03, 2022.[facility], Department of Pathology, [address] [place] [id number], [facility], [facility] of [facility]ology, [address] [place] [address], [facility], Department of Pathology, [address] [place] [address], WIUHB METABOLIC [id number] 04:48:27 Test Item Value Reference Range Interpretation Comments SODIUM (BEAKER) 139 meq/L 136-145 (test code = 381) POTASSIUM 3.7 meq/L 3.5-5.1 (BEAKER) (test code = 379) CHLORIDE (BEAKER) 106 meq/L 98-107 (test code = 382) CO2 (BEAKER) 24 meq/L 22-29 (test code = 355) BLOOD UREA 5 mg/dL 7-21 L NITROGEN (BEAKER) (test code = 354) CREATININE 0.64 mg/dL 0.57-1.25 (BEAKER) (test code = 358) GLUCOSE RANDOM 98 mg/dL 70-105 (BEAKER) (test code = 652) CALCIUM (BEAKER) 8.2 mg/dL 8.4-10.2 L (test code = 697) EGFR (BEAKER) 112 Interpretatio n of eGFR (test code = mL/min/1.73 values Stage De scription 1092) sq m Result G1 Linn l or high >=90 G2 Mildly decreased 60-89 G3a Mildl y to moderately 45-5 9 G3b Moderately to s everely 30-44 G4 Severl y decreased 15-29 G5 Kidney failure <15Reported eGF R is based on the CKD-EPI 2020 equation that d oes not use a race coefficientEsti mated GFR is not as accur ate as Creatinine Ashlyn dominga in predicting glom erular filtration rate . Estimated GFR is not appl icable for dialysis patien ts Pepper Cutter ID - [id number] 04:48:27 Test Item Value Reference Range Interpretation Comments MAGNESIUM (BEAKER) (test code = 2.1 mg/dL 1.6-2.6 627) Pepper Cutter ID - [id number] 04:48:27 Test Item Value Reference Range Interpretation Comments PHOSPHORUS (BEAKER) (test code = 3.2 mg/dL 2.3-4.7 604) Pepper Cutter ID - ADMINCBC W/PLT COUNT & AUTO [id number] 04:32:03 Test Item Value Reference Range Interpretation Comments WHITE BLOOD CELL COUNT (BEAKER) 7.8 K/ L 3.5-10.5 (test code = 775) RED BLOOD CELL COUNT (BEAKER) 3.32 M/ L 4.63-6.08 L (test code = 761) HEMOGLOBIN (BEAKER) (test code = 9.8 GM/DL 13.7-17.5 L 410) HEMATOCRIT (BEAKER) (test code = 30.5 % 40.1-51.0 L 411) MEAN CORPUSCULAR VOLUME (BEAKER) 92 fL 79-92 (test code = 753) MEAN CORPUSCULAR HEMOGLOBIN 29.5 pg 25.7-32.2 (BEAKER) (test code = 751) MEAN CORPUSCULAR HEMOGLOBIN CONC 32.1 GM/DL 32.3-36.5 L (BEAKER) (test code = 752) RED CELL DISTRIBUTION WIDTH 13.4 % 11.6-14.4 (BEAKER) (test code = 412) PLATELET COUNT (BEAKER) (test 189 K/CU MM 150-450 code = 756) MEAN PLATELET VOLUME (BEAKER) 9.9 fL 9.4-12.4 (test code = 754) NUCLEATED RED BLOOD CELLS 0 /100 WBC 0-0 (BEAKER) (test code = 413) NEUTROPHILS RELATIVE PERCENT 66 % (BEAKER) (test code = 429) LYMPHOCYTES RELATIVE PERCENT 24 % (BEAKER) (test code = 430) MONOCYTES RELATIVE PERCENT 8 % (BEAKER) (test code = 431) EOSINOPHILS RELATIVE PERCENT 2 % (BEAKER) (test code = 432) BASOPHILS RELATIVE PERCENT 0 % (BEAKER) (test code = 437) NEUTROPHILS ABSOLUTE COUNT 5.20 K/ L 1.78-5.38 (BEAKER) (test code = 670) LYMPHOCYTES ABSOLUTE COUNT 1.84 K/ L 1.32-3.57 (BEAKER) (test code = 414) MONOCYTES ABSOLUTE COUNT (BEAKER) 0.61 K/ L 0.30-0.82 (test code = 415) EOSINOPHILS ABSOLUTE COUNT 0.13 K/ L 0.04-0.54 (BEAKER) (test code = 416) BASOPHILS ABSOLUTE COUNT (BEAKER) 0.03 K/ L 0.01-0.08 (test code = 417) IMMATURE GRANULOCYTES-RELATIVE 0.40 % 0.00-1.00 PERCENT (BEAKER) (test code = 2801) Prepare Leuko-Red [id number] 23:55:00 Test Item Value Reference Range Interpretation Comments CROSSMATCH (test code = 2264) COMPATIBLE Unit ABO (test code = A Pos 0709651) UNIT NUMBER (test code = [id number] 934-0) Status (test code = 5068289) READY Blood Bank Product (test code RED BLOOD CELLS = 2263) PRODUCT CODE (test code = P9207Z91 933-2) [facility], random [id number] 18:14:12 Creatinine, Ur<5.0mg/dL11/16/2022 6:14 PM CDTCHI CASCADE MEDICAL CENTERReference Range: No NormalsOperator ID - ADMINCHI [facility], RANDOM [id number] 18:14:12 Test Item Value Reference Range Interpretation Comments CREATININE URINE (BEAKER) (test code < mg/dL = 375) Reference Range: No NormalsOperator ID - [id number] 04:58:06 Test Item Value Reference Range Interpretation Comments PHOSPHORUS (BEAKER) (test code = 5.3 mg/dL 2.3-4.7 H 604) Pepper Cutter ID - ADMINBASIC METABOLIC [id number] 04:58:05 Test Item Value Reference Range Interpretation Comments SODIUM (BEAKER) 140 meq/L 136-145 (test code = 381) POTASSIUM 4.1 meq/L 3.5-5.1 (BEAKER) (test code = 379) CHLORIDE (BEAKER) 108 meq/L 98-107 H (test code = 382) CO2 (BEAKER) 23 meq/L 22-29 (test code = 355) BLOOD UREA 9 mg/dL 7-21 NITROGEN (BEAKER) (test code = 354) CREATININE 0.70 mg/dL 0.57-1.25 (BEAKER) (test code = 358) GLUCOSE RANDOM 99 mg/dL 70-105 (BEAKER) (test code = 652) CALCIUM (BEAKER) 8.2 mg/dL 8.4-10.2 L (test code = 697) EGFR (BEAKER) 110 Interpretatio n of eGFR (test code = mL/min/1.73 values Stage De scription 1092) sq m Result G1 Linn l or high >=90 G2 Mildly decreased 60-89 G3a Mildl y to moderately 45-5 9 G3b Moderately to s everely 30-44 G4 Severl y decreased 15-29 G5 Kidney failure <15Reported eGF R is based on the CKD-EPI 2020 equation that d oes not use a race coefficientEsti mated GFR is not as accur ate as Creatinine Ashlyn dominga in predicting glom erular filtration rate . Estimated GFR is not appl icable for dialysis patien ts Pepper Cutter ID - [id number] 04:58:05 Test Item Value Reference Range Interpretation Comments MAGNESIUM (BEAKER) (test code = 1.8 mg/dL 1.6-2.6 627) Pepper Cutter ID - ADMINCBC W/PLT COUNT & AUTO [id number] 04:30:15 Test Item Value Reference Range Interpretation Comments WHITE BLOOD CELL COUNT (BEAKER) 9.1 K/ L 3.5-10.5 (test code = 775) RED BLOOD CELL COUNT (BEAKER) 3.27 M/ L 4.63-6.08 L (test code = 761) HEMOGLOBIN (BEAKER) (test code = 10.1 GM/DL 13.7-17.5 L 410) HEMATOCRIT (BEAKER) (test code = 30.0 % 40.1-51.0 L 411) MEAN CORPUSCULAR VOLUME (BEAKER) 92 fL 79-92 (test code = 753) MEAN CORPUSCULAR HEMOGLOBIN 30.9 pg 25.7-32.2 (BEAKER) (test code = 751) MEAN CORPUSCULAR HEMOGLOBIN CONC 33.7 GM/DL 32.3-36.5 (BEAKER) (test code = 752) RED CELL DISTRIBUTION WIDTH 13.7 % 11.6-14.4 (BEAKER) (test code = 412) PLATELET COUNT (BEAKER) (test 183 K/CU MM 150-450 code = 756) MEAN PLATELET VOLUME (BEAKER) 10.8 fL 9.4-12.4 (test code = 754) NUCLEATED RED BLOOD CELLS 0 /100 WBC 0-0 (BEAKER) (test code = 413) NEUTROPHILS RELATIVE PERCENT 82 % (BEAKER) (test code = 429) LYMPHOCYTES RELATIVE PERCENT 11 % (BEAKER) (test code = 430) MONOCYTES RELATIVE PERCENT 6 % (BEAKER) (test code = 431) EOSINOPHILS RELATIVE PERCENT 0 % (BEAKER) (test code = 432) BASOPHILS RELATIVE PERCENT 0 % (BEAKER) (test code = 437) NEUTROPHILS ABSOLUTE COUNT 7.51 K/ L 1.78-5.38 H (BEAKER) (test code = 670) LYMPHOCYTES ABSOLUTE COUNT 1.03 K/ L 1.32-3.57 L (BEAKER) (test code = 414) MONOCYTES ABSOLUTE COUNT (BEAKER) 0.54 K/ L 0.30-0.82 (test code = 415) EOSINOPHILS ABSOLUTE COUNT 0.00 K/ L 0.04-0.54 L (BEAKER) (test code = 416) BASOPHILS ABSOLUTE COUNT (BEAKER) 0.02 K/ L 0.01-0.08 (test code = 417) IMMATURE GRANULOCYTES-RELATIVE 0.40 % 0.00-1.00 PERCENT (BEAKER) (test code = 2801) BASIC METABOLIC [id number] 21:07:12 Test Item Value Reference Range Interpretation Comments SODIUM (BEAKER) 138 meq/L 136-145 (test code = 381) POTASSIUM 4.0 meq/L 3.5-5.1 (BEAKER) (test code = 379) CHLORIDE (BEAKER) 110 meq/L 98-107 H (test code = 382) CO2 (BEAKER) 16 meq/L 22-29 L (test code = 355) BLOOD UREA 11 mg/dL 7-21 NITROGEN (BEAKER) (test code = 354) CREATININE 0.73 mg/dL 0.57-1.25 (BEAKER) (test code = 358) GLUCOSE RANDOM 147 mg/dL 70-105 H (BEAKER) (test code = 652) CALCIUM (BEAKER) 8.7 mg/dL 8.4-10.2 (test code = 697) EGFR (BEAKER) 109 Interpretatio n of eGFR (test code = mL/min/1.73 values Stage De scription 1092) sq m Result G1 Linn l or high >=90 G2 Mildly decreased 60-89 G3a Mildl y to moderately 45-5 9 G3b Moderately to s everely 30-44 G4 Severl y decreased 15-29 G5 Kidney failure <15Reported eGF R is based on the CKD-EPI 2020 equation that d oes not use a race coefficientEsti mated GFR is not as accur ate as Creatinine Ashlyn dominga in predicting glom erular filtration rate . Estimated GFR is not appl icable for dialysis patien ts Pepper Cutter ID - ADMINCBC W/PLT COUNT & AUTO [id number] 20:44:09 Test Item Value Reference Range Interpretation Comments WHITE BLOOD CELL COUNT (BEAKER) 15.0 K/ L 3.5-10.5 H (test code = 775) RED BLOOD CELL COUNT (BEAKER) 3.83 M/ L 4.63-6.08 L (test code = 761) HEMOGLOBIN (BEAKER) (test code = 11.8 GM/DL 13.7-17.5 L 410) HEMATOCRIT (BEAKER) (test code = 35.4 % 40.1-51.0 L 411) MEAN CORPUSCULAR VOLUME (BEAKER) 92 fL 79-92 (test code = 753) MEAN CORPUSCULAR HEMOGLOBIN 30.8 pg 25.7-32.2 (BEAKER) (test code = 751) MEAN CORPUSCULAR HEMOGLOBIN CONC 33.3 GM/DL 32.3-36.5 (BEAKER) (test code = 752) RED CELL DISTRIBUTION WIDTH 13.2 % 11.6-14.4 (BEAKER) (test code = 412) PLATELET COUNT (BEAKER) (test 189 K/CU MM 150-450 code = 756) MEAN PLATELET VOLUME (BEAKER) 9.8 fL 9.4-12.4 (test code = 754) NUCLEATED RED BLOOD CELLS 0 /100 WBC 0-0 (BEAKER) (test code = 413) NEUTROPHILS RELATIVE PERCENT 86 % (BEAKER) (test code = 429) LYMPHOCYTES RELATIVE PERCENT 9 % (BEAKER) (test code = 430) MONOCYTES RELATIVE PERCENT 4 % (BEAKER) (test code = 431) EOSINOPHILS RELATIVE PERCENT 0 % (BEAKER) (test code = 432) BASOPHILS RELATIVE PERCENT 0 % (BEAKER) (test code = 437) NEUTROPHILS ABSOLUTE COUNT 12.95 K/ L 1.78-5.38 H (BEAKER) (test code = 670) LYMPHOCYTES ABSOLUTE COUNT 1.32 K/ L 1.32-3.57 (BEAKER) (test code = 414) MONOCYTES ABSOLUTE COUNT (BEAKER) 0.63 K/ L 0.30-0.82 (test code = 415) EOSINOPHILS ABSOLUTE COUNT 0.02 K/ L 0.04-0.54 L (BEAKER) (test code = 416) BASOPHILS ABSOLUTE COUNT (BEAKER) 0.06 K/ L 0.01-0.08 (test code = 417) IMMATURE GRANULOCYTES-RELATIVE 0.40 % 0.00-1.00 PERCENT (BEAKER) (test code = 2801) Calcium, [id number] 18:22:52 Test Item Value Reference Range Interpretation Comments Calcium, Ion (test code = 1993-) 1.08 mmol/L 1.12-1.27 L pH, Blood (test code = 44848-9) 7.29 Lab Interpretation (test code = Abnormal 28842-9) [facility]CALCIUM, [id number] 18:22:52 Test Item Value Reference Range Interpretation Comments CALCIUM IONIZED (BEAKER) (test 1.08 mmol/L 1.12-1.27 L code = 698) PH, BLOOD (BEAKER) (test code = 7.29 1810) HGB/HCT (H&H)-Stat [id number] 18:22:50 Test Item Value Reference Range Interpretation Comments Hemoglobin (test code = 10.5 See_Comment L [Au tomated message] 718-7) The system [employer] generated this result transmitted ref erence range: 13.0 - 1 6.8 GM/DL. The refe rence range was not u sed to interpret this result as normal/abnor mal. Hematocrit (test code = 31.0 % 40.0-50.0 L 4544-3) Lab Interpretation (test Abnormal code = 70557-5) [facility]GB[facility] (H&H[facility] - STAT [id number] 18:22:50 Test Item Value Reference Range Interpretation Comments HEMOGLOBIN (BEAKER) (test code = 10.5 GM/DL 13.0-16.8 L 410) HEMATOCRIT (BEAKER) (test code = 31.0 % 40.0-50.0 L 411) Blood gas, [id number] 18:22:49 Test Item Value Reference Range Interpretation Comments pH, Arterial (test code 7.31 7.35-7.45 L = 2744-1) pCO2, Arterial (test 42 See_Comment [Autom ated code = 2019-) message] The system which generated this result transmitted reference range : 35 - 45 mm Hg. The reference range was not used to interpret this result as normal/abnormal . pO2, Arterial (test 162 See_Comment H [Automa jessi code = 2703-7) message] The system which generated this result transmitted reference range : 80 - 90 mm Hg. The reference range was not used to interpret this result as normal/abnormal . O2 Sat, Arterial (test 99.0 % 96.0-97.0 H code = 2708-6) HCO3, Arterial (test 21 mmol/L 21-29 code = 1960-4) Base Excess, Arterial -5.1 mmol/L -2.0-3.0 L (test code = 1925-7) Patient Temperature 35.2 (test code = 8310-5) FIO2 (test code = 1819) 40.0 Lab Interpretation Abnormal (test code = 49627-7) [facility] ValleyBLOOD GAS, [id number] 18:22:49 Test Item Value Reference Range Interpretation Comments PH ARTERIAL (BEAKER) (test code = 7.31 7.35-7.45 L 383) PCO2 ARTERIAL (BEAKER) (test code 42 mm Hg 35-45 = 384) PO2 ARTERIAL (BEAKER) (test code 162 mm Hg 80-90 H = 385) O2 SATURATION ARTERIAL (BEAKER) 99.0 % 96.0-97.0 H (test code = 386) HCO3 ARTERIAL (BEAKER) (test code 21 mmol/L 21-29 = 388) BASE EXCESS ARTERIAL (BEAKER) -5.1 mmol/L -2.0-3.0 L (test code = 387) PATIENT TEMPERATURE (BEAKER) 35.2 (test code = 1818) FIO2 (BEAKER) (test code = 1819) 40.0 Glucose-Stat [id number] 18:22:41 Test Item Value Reference Range Interpretation Comments Glucose (test code = 2345-7) 155 mg/dL 70-110 H Lab Interpretation (test code = Abnormal 13108-5) [facility] [id number] 18:22:41 Test Item Value Reference Range Interpretation Comments Sodium (test code = 2951-2) 137 meq/L 136-145 Lab Interpretation (test code = Normal 90805-2) [facility] ValleyPotassium-Stat [id number] 18:22:41 Test Item Value Reference Range Interpretation Comments Potassium (test code = 2823-3) 3.7 meq/L 3.6-5.5 Lab Interpretation (test code = Normal 59026-4) [facility] ValleyGLUCOSE-STAT [id number] 18:22:41 Test Item Value Reference Range Interpretation Comments GLUCOSE RANDOM (BEAKER) (test code 155 mg/dL 70-110 H = 652) SODIUM NA-STAT [id number] 18:22:41 Test Item Value Reference Range Interpretation Comments SODIUM (BEAKER) (test code = 381) 137 meq/L 136-145 POTASSIUM-STAT [id number] 18:22:41 Test Item Value Reference Range Interpretation Comments POTASSIUM (BEAKER) (test code = 3.7 meq/L 3.6-5.5 379) CALCIUM, [id number] 15:20:49 Test Item Value Reference Range Interpretation Comments CALCIUM IONIZED (BEAKER) (test 1.03 mmol/L 1.12-1.27 L code = 698) PH, BLOOD (BEAKER) (test code = 7.41 1810) HGB/HCT (H&H) - STAT [id number] 15:16:33 Test Item Value Reference Range Interpretation Comments HEMOGLOBIN (BEAKER) (test code = 12.6 GM/DL 13.0-16.8 L 410) HEMATOCRIT (BEAKER) (test code = 37.0 % 40.0-50.0 L 411) BLOOD GAS, [id number] 15:16:27 Test Item Value Reference Range Interpretation Comments PH ARTERIAL (BEAKER) (test code = 7.43 7.35-7.45 383) PCO2 ARTERIAL (BEAKER) (test code 37 mm Hg 35-45 = 384) PO2 ARTERIAL (BEAKER) (test code 212 mm Hg 80-90 H = 385) O2 SATURATION ARTERIAL (BEAKER) 99.5 % 96.0-97.0 H (test code = 386) HCO3 ARTERIAL (BEAKER) (test code 24 mmol/L 21-29 = 388) BASE EXCESS ARTERIAL (BEAKER) -0.6 mmol/L -2.0-3.0 (test code = 387) PATIENT TEMPERATURE (BEAKER) 36.0 (test code = 1818) FIO2 (BEAKER) (test code = 1819) 64.0 SODIUM NA-STAT [id number] 15:16:22 Test Item Value Reference Range Interpretation Comments SODIUM (BEAKER) (test code = 381) 138 meq/L 136-145 POTASSIUM-STAT [id number] 15:16:22 Test Item Value Reference Range Interpretation Comments POTASSIUM (BEAKER) (test code = 3.5 meq/L 3.6-5.5 L 379) GLUCOSE-STAT [id number] 15:16:16 Test Item Value Reference Range Interpretation Comments GLUCOSE RANDOM (BEAKER) (test code = 77 mg/dL 70-110 652) COMPREHENSIVE METABOLIC [id number] 06:54:18 Test Item Value Reference Range Interpretation Comments GLUCOSE (test code = 99 MG/DL 70-99 2216) BUN (test code = 20 MG/DL 6-20 2207) CREATININE (test 0.78 MG/DL 0.80-1.40 L code = 2214) eGFR (2020 CKD-EPI) 107 >60 (test code = 65040) ML/MIN/1.73 CALC BUN/CREAT (test 26 RATIO 6-28 code = 2235) SODIUM (test code = 144 MEQ/L 437-444 6030) POTASSIUM (test code 5.0 MEQ/L 3.5-5.4 = 8) CHLORIDE (test code 102 MEQ/L 95-107 = 2215) CARBON DIOXIDE (test 19 MEQ/L - code = 2206) CALCIUM (test code = 10.0 MG/DL 8.5-10.5 2208) PROTEIN, TOTAL (test 8.1 G/DL 6.1-8.3 code = 222) ALBUMIN (test code = 5.3 G/DL 3.5-5.2 H 2200) CALC GLOBULIN (test 2.8 G/DL 1.9-3.7 code = 224) CALC A/G RATIO (test 1.9 RATIO 1.0-2.6 code = 2234) BILIRUBIN, TOTAL 0.4 MG/DL See_Comment [Automated message] (test code = 2206) The syste m which generated this result transmit jessi reference range : <=1.2. The refe rence range was not u sed to interpret th is result as normal/abnormal . ALKALINE PHOSPHATASE 54 U/L 40-121 (test code = 2203) AST (test code = 17 U/L 9-50 2217) ALT (test code = 42 U/L 5-50 2218) TSH, THIRD [id number] 02:03:48 Test Item Value Reference Range Interpretation Comments TSH, THIRD 1.780 UIU/ML 0.400-4.100 UNLESS OTHERWI SE GENERATION (test INDICATED, ALL TESTING code = 7456) PERFORMED [facility], [facility]. [address] [place] [id number] [place] [address] DIRECTOR: Yash DEWITTIA NUMBER [id number] CAP ACCREDITATION N O. [id number] CBC W/AUTO DIFF WITH [id number] 07:46:48 Test Item Value Reference Range Interpretation [...] RBCS 0.00 K/UL 0.00-0.11 (test code = 45511) [id number] 00:00:00 Test Item Value Reference Range Interpretation Comments AMYLASE (test code = 2204) 36 U/L [id number] 00:00:00 Test Item Value Reference Range Interpretation Comments LIPASE (test code = 2057) 19 U/L [id number] 00:00:00 Test Item Value Reference Range Interpretation Comments LIPASE (test code = 2057) 19 U/L COMPREHENSIVE METABOLIC [id number] 00:00:00 Test Item Value Reference Range Interpretation Comments GLUCOSE (test code = 2217) 102 MG/DL BUN (test code = 2208) 16 MG/DL CREATININE (test code = 2214) 0.65 MG/DL eGFR AMER. (test code 131 ML/MIN/1.73 = 89889) eGFR NON- AMER. (test 113 ML/MIN/1.73 code = 57385) CALC BUN/CREAT (test code = 25 RATIO 2235) SODIUM (test code = 2231) 140 MEQ/L POTASSIUM (test code = 2228) 4.6 MEQ/L CHLORIDE (test code = 2215) 103 MEQ/L CARBON DIOXIDE (test code = 24 MEQ/L 2205) CALCIUM (test code = 220) 9.5 MG/DL PROTEIN, TOTAL (test code = 7.6 G/DL 2228) ALBUMIN (test code = 220) 4.9 G/DL CALC GLOBULIN (test code = 2.7 G/DL 2239) CALC A/G RATIO (test code = 1.8 RATIO 2233) BILIRUBIN, TOTAL (test code = 0.3 MG/DL 2206) ALKALINE PHOSPHATASE (test 42 U/L code = 2204) AST (test code = 2218) 13 U/L ALT (test code = 2219) 35 U/L LIPID [id number] 00:00:00 Test Item Value Reference Range Interpretation Comments CHOLESTEROL (test code = 2210) 193 MG/DL TRIGLYCERIDES (test code = 2232) 124 MG/DL HDL CHOLESTEROL (test code = 2220) 49 MG/DL CALC LDL CHOL (test code = 2237) 121 MG/DL RISK RATIO LDL/HDL (test code = 2.47 RATIO 2238)
--- NOTE | 2023-01-28 10:17 | EDPHYS ---
Physician Documentation [facility] Name: Chilo Sher Jr Age: 52 yrs Sex: Male : 1970 Arrival Date: 01/28/2023 Time: 09:12 Bed Hall11 Private MD: ED Physician Roderick Hendrickson HPI: 01/28 10:15 This 52 yrs old Male presents to ER via Ambulatory with complaints of Body kb Aches, Congestion, Cough. 10:15 Patient is a 52-year-old male with no medical history who presents for cough, kb congestion, body aches, chills for 2 days.. Historical: - Allergies: 09:39 No Known Allergies; ap3 - Home Meds: 09:39 None [Active]; ap3 - PMHx: 09:39 None; ap3 - Immunization history:: Adult Immunizations up to date. - Social history:: Smoking status: Patient denies any tobacco usage or history of. ROS: 10:15 Abdomen/GI: Negative for abdominal pain, nausea, vomiting, diarrhea, and constipation, kb 10:15 Constitutional: Positive for body aches, chills, malaise, 10:15 ENT: Positive for sinus congestion, sore throat, 10:15 Respiratory: Positive for cough, 10:15 All other systems are negative, Exam: 10:15 Constitutional: This is a well developed, well nourished patient who is awake, alert, kb and in no acute distress. Head/Face: Normocephalic, atraumatic. ENT: Moist Mucous membranes Cardiovascular: Regular rate Respiratory: Respirations even and unlabored. No increased work of breathing. Talking in full sentences Abdomen/GI: Soft, non-tender. No distention Skin: Warm, dry with normal turgor. Normal color. MS/ Extremity: Pulses equal, no cyanosis. Neurovascular intact. Full, normal range of motion. Neuro: Awake and alert, GCS 15, oriented to person, place, time, and situation. Moves all extremities. Normal gait. Vital Signs: 09:38 BP 129 / 108; Pulse 92; Resp 18; Temp 98.3; Pulse Ox 98% ; ap3 MDM: 09:21 Patient medically screened. kb 10:15 Differential diagnosis: COVID, flu, URI, strep. Data reviewed: vital signs, nurses kb notes. Counseling: I had a detailed discussion with the patient and/or guardian regarding the historical points, exam findings, and any diagnostic results supporting the discharge/admit diagnosis, lab results, the need for outpatient follow up, a family practitioner, to return to the emergency department if symptoms worsen or persist or if there are any questions or concerns that arise at home. 01/28 09:37 Order name: Strep kb 01/28 09:37 Order name: Flu; Complete Time: 10:15 kb 01/28 09:37 Order name: SARS-COV-2 RT PCR; Complete Time: 10:34 kb 01/28 10:13 Order name: Throat Culture EDMS Administered Medications: No medications were administered Disposition: 15:25 I was immediately available on-site in the Emergency Department for consultation in the il3 care of the patient. Disposition Summary: 01/28/23 10:17 Discharge Ordered Notes: Location: Home kb Condition: Stable kb Diagnosis - Influenza due to identified novel influenza A virus - B kb Followup: kb - With: Private Physician - When: 2 - 3 days - Reason: Recheck today's complaints, Continuance of care, Re-evaluation by your physician Followup: kb - With: Emergency Department - When: As needed - Reason: Worsening of condition Discharge Instructions: - Discharge Summary Sheet kb - Influenza, Adult, [id number] kb Forms: - Medication Reconciliation Form kb - Thank You Letter kb - Antibiotic Education kb - Prescription Opioid Use kb - Patient Portal Instructions kb - Leadership Thank You Letter kb Prescriptions: - Tamiflu 75 mg Oral capsule - take 1 tablet ORAL route every 12 hours for 5 days; 10 tablet; Refills: 0, kb Product Selection Permitted Signatures: Dispatcher [employer] Priscilla Joseph, CAROLYN-Sabi Josue, RN RN ap3 Roderick Hendrickson, DO ms3
--- NOTE | 2023-01-28 10:17 | ER ---
Nurse's Notes [facility] Name: Chilo Sher Jr Age: 52 yrs Sex: Male : 1970 Arrival Date: 01/28/2023 Time: 09:12 Bed Hall11 [facility] MD: Diagnosis: Influenza due to identified novel influenza A virus-B Presentation: 01/28 09:38 Chief complaint: Patient states: he has been having congestion, sore throat, and body ap3 aches since Saturday01/26/2023. Coronavirus screen: Client presents with at least one sign or symptom that may indicate coronavirus-19. Ebola Screen: No symptoms or risks identified at this time. Resp Distress? No respiratory distress is noted at this time. Initial Sepsis Screen: Does the patient meet any 2 criteria? No. Patient's initial sepsis screen is negative. Does the patient have a suspected source of infection? No. Patient's initial sepsis screen is negative. Risk Assessment: Do you want to hurt yourself or someone else? Patient reports no desire to harm self or others. Onset of symptoms was January 26, 2023. 09:38 Method Of Arrival: Ambulatory ap3 09:38 Acuity: INEZ 4 ap3 Triage Assessment: 09:39 General: Appears ill, Behavior is appropriate for age. General: Reports chills for ap3 feeling ill for fatigue for. Pain: Complains of pain in generalized body aches. Neuro: Level of Consciousness is awake, alert, obeys commands, Oriented to person, place, time, situation, Appropriate for age. Respiratory: Airway is patent Respiratory effort is even, unlabored, Respiratory pattern is regular, symmetrical. Historical: - Allergies: 09:39 No Known Allergies; ap3 - Home Meds: 09:39 None [Active]; ap3 - PMHx: 09:39 None; ap3 - Immunization history:: Adult Immunizations up to date. - Social history:: Smoking status: Patient denies any tobacco usage or history of. Screenin:39 [facility] ED Fall Risk Assessment (Adult) History of falling in the last 3 months, ap3 including since admission No falls in past 3 months (0 pts). Abuse screen: Denies threats or abuse. Nutritional screening: No deficits noted. Tuberculosis screening: No symptoms or risk factors identified. Vital Signs: 09:38 BP 129 / 108; Pulse 92; Resp 18; Temp 98.3; Pulse Ox 98% ; ap3 ED Course: 09:15 Patient arrived in ED. rg4 09:19 Priscilla Ordoñez FNP-C is [facility]. kb 09:19 Roderick Hendrickson DO is Attending Physician. kb 09:39 Triage completed. ap3 09:40 Arm band placed on left wrist. ap3 10:58 No provider procedures requiring assistance completed. Patient did not have IV access jl7 during this emergency room visit. Administered Medications: No medications were administered Outcome: 10:17 Discharge ordered by MD. kb 10:58 Discharged to home ambulatory, jl7 10:58 Condition: stable 10:58 Discharge instructions given to patient, Instructed on discharge instructions, follow up and referral plans. medication usage, Demonstrated understanding of instructions, follow-up care, medications, Prescriptions given X 1, 10:58 Patient left the ED. jl7 Signatures: Priscilla Ordoñez FNP-C FNP-Alis Ruiz rg4 Eric Araujo RN RN jl7 Sabi Figueroa RN RN ap3
[2023-01-28 11:27] VITALS: BP 129/108; TEMP 98.3; O2SAT 98
== END 2023-01-28 10:58 | disposition home or self-care (01) ==
LOC: ER 09:12
DX: J10.1 Influenza due to other identified influenza virus with other respiratory manifestations (principal); Z11.52 Encounter for screening for COVID-19
CPT/HCPCS: 87070; 87081; 87635; 87804; 99283